=== PATIENT | female | born 1945 | race Asian ===

== ENCOUNTER 2016-07-12 09:28 | Outpatient (CLI) | payer MEDICARE, OTHER | END 2016-07-12 09:29 | disposition home or self-care (01) | DX: G47.33 Obstructive sleep apnea (adult) (pediatric) (principal) | CPT/HCPCS: 99214; G0463 ==

== ENCOUNTER 2016-08-09 09:45 | Outpatient (CLI) | payer MEDICARE, OTHER | END 2016-08-09 09:46 | disposition home or self-care (01) | DX: G47.33 Obstructive sleep apnea (adult) (pediatric) (principal) | CPT/HCPCS: 99214; G0463 ==

== ENCOUNTER 2016-08-16 09:56 | Outpatient (CLI) | payer MEDICARE, OTHER | END 2016-08-16 09:57 | disposition home or self-care (01) | DX: R06.00 Dyspnea, unspecified (principal); R00.0 Tachycardia, unspecified | CPT/HCPCS: 78452; 93017; A9500 ==

== ENCOUNTER 2016-09-12 08:00 | Outpatient (CLI) | payer MEDICARE, OTHER | END 2016-09-12 23:59 | DX: N19 Unspecified kidney failure (principal); Z79.899 Other long term (current) drug therapy; I10 Essential (primary) hypertension; R06.09 Other forms of dyspnea ==

== ENCOUNTER 2016-11-08 09:40 | Outpatient (CLI) | payer MEDICARE, OTHER | END 2016-11-08 09:41 | disposition home or self-care (01) | DX: G47.33 Obstructive sleep apnea (adult) (pediatric) (principal) | CPT/HCPCS: 99214; G0463 ==

== ENCOUNTER 2017-01-25 10:25 | Outpatient (CLI) | payer MEDICARE, OTHER ==
--- NOTE | 2017-01-25 10:58 | XRAY Report ---
TWO-VIEW CHEST: 01/25/2017 CLINICAL INDICATION: Dyspnea. FINDINGS: Frontal and lateral views of the chest demonstrate a mildly enlarged cardiac silhouette. There is central pulmonary vascular congestion. No focal consolidation, effusion, or pneumothorax is present. IMPRESSION: PULMONARY VASCULAR CONGESTION, SUGGESTIVE OF MILD CONGESTIVE FAILURE. JOB #: [id number] EXT JOB #:[id number]
[2017-01-25 11:36] LABS: BASOPHILS % (AUTO) 0.5 %; EOSINOPHILS # (AUTO) 0.1 10^3/uL (0.0-0.7); EOSINOPHILS % (AUTO) 2.2 %; HGB - HEMOGLOBIN 11.1 g/dL (12.0-16.0); LYMPHOCYTES # (AUTO) 1.8 10^3/uL (1.5-3.5); LYMPHOCYTES % (AUTO) 30.2 %; MEAN CORPUSCULAR HEMOGLOBIN 21.5 pg (27.0-31.0); MEAN CORPUSCULAR HGB CONC 31.8 g/dL (32.0-36.0); MEAN CORPUSCULAR VOLUME 67.6 fL (81.0-99.0); MEAN PLATELET VOLUME 8.1 fL (7.9-10.8); MONOCYTES # (AUTO) 0.4 10^3/uL (0.0-1.0); MONOCYTES % (AUTO) 6.8 %; NEUTROPHILS # (AUTO) 3.7 10^3/uL (1.5-6.6); NEUTROPHILS % (AUTO) 60.3 %; RED BLOOD COUNT 5.19 10^6/uL (4.20-5.40); RED CELL DISTRIBUTION WIDTH 15.7 % (12.0-15.0); UNCORRECTED WHITE BLOOD COUNT 6.1 x10^3/uL; WHITE BLOOD COUNT 6.1 x10^3/uL (4.8-10.8)
[2017-01-25 11:55] LABS: ALBUMIN/GLOBULIN RATIO 1.1 (1.0-2.2); BILIRUBIN,TOTAL 0.5 mg/dL (0.2-1.0); CREATININE 1.4 mg/dL (0.4-1.0); POTASSIUM 4.4 mmol/L (3.5-5.0); TOTAL PROTEIN 6.4 g/dL (6.7-8.2)
== END 2017-01-25 10:26 | disposition home or self-care (01) ==
LOC: DI 10:25
PROVIDERS: ATTEND Internal Medicine
DX: R09.89 Other specified symptoms and signs involving the circulatory and respiratory systems (principal); R06.09 Other forms of dyspnea; R60.9 Edema, unspecified
CPT/HCPCS: 36415; 71020; 80053; 83880; 84443; 85025

== ENCOUNTER 2017-03-23 10:46 | Outpatient (CLI) | payer MEDICARE, OTHER ==
[2017-03-23 11:22] LABS: BASOPHILS % (AUTO) 0.7 %; EOSINOPHILS # (AUTO) 0.2 10^3/uL (0.0-0.7); EOSINOPHILS % (AUTO) 2.6 %; HCT - HEMATOCRIT 37.6 % (37.0-47.0); LYMPHOCYTES # (AUTO) 2.6 10^3/uL (1.5-3.5); LYMPHOCYTES % (AUTO) 38.5 %; MEAN CORPUSCULAR HEMOGLOBIN 21.3 pg (27.0-31.0); MEAN CORPUSCULAR HGB CONC 31.9 g/dL (32.0-36.0); MEAN CORPUSCULAR VOLUME 66.7 fL (81.0-99.0); MEAN PLATELET VOLUME 8.2 fL (7.9-10.8); MONOCYTES # (AUTO) 0.4 10^3/uL (0.0-1.0); MONOCYTES % (AUTO) 5.8 %; NEUTROPHILS # (AUTO) 3.6 10^3/uL (1.5-6.6); NEUTROPHILS % (AUTO) 52.4 %; NUCLEATED RED BLOOD CELLS AUTO 0.1 /100WBC; RED BLOOD COUNT 5.63 10^6/uL (4.20-5.40); UNCORRECTED WHITE BLOOD COUNT 6.9 x10^3/uL; WHITE BLOOD COUNT 6.9 x10^3/uL (4.8-10.8)
[2017-03-23 11:37] LABS: BUN - BLOOD UREA NITROGEN 27 mg/dL (6-20); CALCIUM 9.4 mg/dL (8.5-10.3); CARBON DIOXIDE - CO2 25 mmol/L (21-32); CHLORIDE 106 mmol/L (101-111); CHOL/HDL RATIO 3.3 (<4.4); CHOLESTEROL 205 mg/dL; CREATININE 1.3 mg/dL (0.4-1.0); GFR - MDRD 40 (>89); GLUCOSE 117 mg/dL (70-100); HDL CHOLESTEROL 63 mg/dL; LDL/HDL RATIO 1.7 (<4.4); MAGNESIUM 1.8 mg/dL (1.7-2.8); POTASSIUM 3.8 mmol/L (3.5-5.0); SODIUM 142 mmol/L (135-145); TRIGLYCERIDES 177 mg/dL; URIC ACID 8.3 mg/dL (2.6-7.2); VLDL CHOLESTEROL 35 mg/dL
[2017-03-23 11:40] LABS: PLATELET ESTIMATE, MANUAL NORMAL (130-450,000) (NORMAL); PLATELET MORPHOLOGY NORMAL APPEARANCE (NORMAL)
[2017-03-23 11:41] LABS: WBC MORPHOLOGY (MULTIPLE) NORMAL APPEARANCE (NORMAL)
[2017-03-23 11:52] LABS: BILIRUBIN,URINE NEGATIVE (NEGATIVE); PH,URINE 5.5 PH (5.0-7.5)
[2017-03-23 11:53] LABS: UA CHARGE (STRIP ONLY) YES; UR CULTURE IF IND NOT INDICATED
[2017-03-23 12:27] LABS: HEMOGLOBIN A1C 0.5 g/dL
== END 2017-03-23 10:47 | disposition home or self-care (01) ==
LOC: LAB 10:46
PROVIDERS: ATTEND Internal Medicine
DX: I12.9 Hypertensive chronic kidney disease with stage 1 through stage 4 chronic kidney disease, or unspecified chronic kidney disease (principal); Z79.899 Other long term (current) drug therapy; H35.81 Retinal edema; I48.91 Unspecified atrial fibrillation; N18.9 Chronic kidney disease, unspecified; G47.33 Obstructive sleep apnea (adult) (pediatric); I63.9 Cerebral infarction, unspecified; E78.5 Hyperlipidemia, unspecified; M10.9 Gout, unspecified; D50.9 Iron deficiency anemia, unspecified; R39.15 Urgency of urination
CPT/HCPCS: 36415; 80048; 80061; 81001; 81003; 82550; 83036; 83735; 84550; 85025; 87086

== ENCOUNTER 2017-05-30 14:10 | Outpatient (CLI) | payer MEDICARE, OTHER | END 2017-05-30 14:11 | disposition home or self-care (01) | LOC: SC 14:10 | PROVIDERS: ATTEND Nurse Practitioner Family | DX: G47.33 Obstructive sleep apnea (adult) (pediatric) (principal) | CPT/HCPCS: 99214; G0463; 99212 ==

== ENCOUNTER 2017-08-29 14:35 | Outpatient (CLI) | payer MEDICARE, OTHER ==
[2017-08-29 15:26] LABS: CALCIUM 8.8 mg/dL (8.5-10.3); CREATININE 1.2 mg/dL (0.4-1.0)
[2017-08-29 15:44] LABS: HEMOGLOBIN A1C 0.48 g/dL; HEMOGLOBIN A1C % 5.5 % (4.6-6.2)
== END 2017-08-29 14:36 | disposition home or self-care (01) ==
LOC: LAB 14:35
PROVIDERS: ATTEND Internal Medicine
DX: R60.9 Edema, unspecified (principal); R73.01 Impaired fasting glucose; N18.9 Chronic kidney disease, unspecified; I12.9 Hypertensive chronic kidney disease with stage 1 through stage 4 chronic kidney disease, or unspecified chronic kidney disease; Z79.899 Other long term (current) drug therapy
CPT/HCPCS: 36415; 80048; 83036

== ENCOUNTER 2017-08-31 14:48 | Outpatient (CLI) | payer MEDICARE, OTHER ==
--- NOTE | 2017-08-31 23:53 | Ultrasound Report ---
EXAM: LEFT LOWER EXTREMITY VENOUS ULTRASOUND EXAM DATE: 08/31/2017 04:33 PM. CLINICAL HISTORY: EDEMA. COMPARISON: None. TECHNIQUE: Real-time sonographic vascular imaging was performed by the engineering director through the lower extremity utilizing both color-flow and Doppler spectral analysis. Multiple lead generation representative static yoshi ges were saved for review. FINDINGS: Common Femoral Vein (CFV): Normal. CFV-GSV Junction: Normal. Profunda Femoral Vein (PFV): Normal. Femoral Vein (FV) Prox: Normal. Femoral Vein (FV) Mid: Normal. Femoral Vein (FV) Dist: Normal. Popliteal Vein: Normal. Posterior Tibial Veins: Normal. Peroneal Veins: Normal. Contralateral Side CFV: Normal. Other: None. IMPRESSION: No evidence for deep venous thrombosis. [facility] Referring Provider Line: [phone] SITE ID: [id number]
== END 2017-08-31 14:49 | disposition home or self-care (01) ==
LOC: DI 14:48
PROVIDERS: ATTEND Internal Medicine
DX: R60.9 Edema, unspecified (principal)

== ENCOUNTER 2017-12-13 13:38 | Outpatient (CLI) | payer MEDICARE, OTHER | END 2017-12-13 13:39 | disposition home or self-care (01) | LOC: SC 13:38 | PROVIDERS: ATTEND Nurse Practitioner Family | DX: G47.33 Obstructive sleep apnea (adult) (pediatric) (principal) | CPT/HCPCS: 99214; G0463; 99212 ==

== ENCOUNTER 2018-03-28 10:55 | Outpatient (CLI) | payer MEDICARE, OTHER ==
[2018-03-28 12:05] LABS: BASOPHILS % (AUTO) 0.2 %; EOSINOPHILS # (AUTO) 0.2 10^3/uL (0.0-0.7); EOSINOPHILS % (AUTO) 2.5 %; HGB - HEMOGLOBIN 11.8 g/dL (12.0-16.0); LYMPHOCYTES # (AUTO) 2.2 10^3/uL (1.5-3.5); LYMPHOCYTES % (AUTO) 33.5 %; MEAN CORPUSCULAR HEMOGLOBIN 22.2 pg (27.0-31.0); MEAN CORPUSCULAR HGB CONC 32.3 g/dL (32.0-36.0); MEAN CORPUSCULAR VOLUME 68.6 fL (81.0-99.0); MEAN PLATELET VOLUME 8.4 fL (7.9-10.8); MONOCYTES # (AUTO) 0.4 10^3/uL (0.0-1.0); MONOCYTES % (AUTO) 6.9 %; NEUTROPHILS # (AUTO) 3.7 10^3/uL (1.5-6.6); NEUTROPHILS % (AUTO) 56.9 %; PLT - PLATELET COUNT 181 10^3/uL (130-450); RED BLOOD COUNT 5.31 10^6/uL (4.20-5.40); RED CELL DISTRIBUTION WIDTH 16.6 % (12.0-15.0); WHITE BLOOD COUNT 6.4 x10^3/uL (4.8-10.8)
[2018-03-28 12:51] LABS: ALBUMIN 3.7 g/dL (3.2-5.5); ALBUMIN/GLOBULIN RATIO 1.1 (1.0-2.2); ALKALINE PHOSPHATASE 62 IU/L (42-121); ALT ALANINE AMINOTRANSFERASE 24 IU/L (10-60); AST ASPARTATE AMINOTRANSFERASE 27 IU/L (10-42); BILIRUBIN,TOTAL 0.9 mg/dL (0.2-1.0); BUN - BLOOD UREA NITROGEN 24 mg/dL (6-20); CALCIUM 8.9 mg/dL (8.5-10.3); CARBON DIOXIDE - CO2 24 mmol/L (21-32); CHLORIDE 103 mmol/L (101-111); CHOL/HDL RATIO 3.2 (<4.4); CHOLESTEROL 190 mg/dL; CK- CREATINE KINASE 95 IU/L (22-269); CREATININE 1.3 mg/dL (0.4-1.0); GFR - MDRD 40 (>89); GLUCOSE 115 mg/dL (70-100); HDL CHOLESTEROL 60 mg/dL; LDL CHOLESTEROL,CALCULATED 97 mg/dL; LDL/HDL RATIO 1.6 (<4.4); SODIUM 136 mmol/L (135-145); TOTAL PROTEIN 7.2 g/dL (6.7-8.2); URIC ACID 9.4 mg/dL (2.6-7.2); VLDL CHOLESTEROL 33 mg/dL
[2018-03-28 13:23] LABS: PLATELET ESTIMATE, MANUAL NORMAL (130-450,000) (NORMAL)
[2018-03-28 13:27] LABS: HB2 TOTAL 12.6 g/dL; HEMOGLOBIN A1C 0.49 g/dL; HEMOGLOBIN A1C % 5.7 % (4.6-6.2)
== END 2018-03-28 10:56 | disposition home or self-care (01) ==
LOC: LAB 10:55
PROVIDERS: ATTEND Internal Medicine
DX: N18.9 Chronic kidney disease, unspecified (principal); E78.5 Hyperlipidemia, unspecified; Z79.899 Other long term (current) drug therapy; D50.9 Iron deficiency anemia, unspecified; R73.01 Impaired fasting glucose; I48.91 Unspecified atrial fibrillation; M10.9 Gout, unspecified; I10 Essential (primary) hypertension; N39.41 Urge incontinence; H35.81 Retinal edema; Z86.010 Personal history of colon polyps
CPT/HCPCS: 36415; 80053; 80061; 82550; 83036; 83721; 84443; 84550; 85025

== ENCOUNTER 2018-12-26 09:16 | Outpatient (CLI) | payer MEDICARE, OTHER | END 2018-12-26 09:17 | disposition home or self-care (01) | LOC: SC 09:16 | PROVIDERS: ATTEND Nurse Practitioner Family | DX: G47.33 Obstructive sleep apnea (adult) (pediatric) (principal); R03.0 Elevated blood-pressure reading, without diagnosis of hypertension | CPT/HCPCS: 99214; G0463; 99212 ==

== ENCOUNTER 2019-04-08 11:04 | Outpatient (CLI) | payer MEDICARE, OTHER ==
--- NOTE | 2019-04-11 08:51 | Mammography Report ---
Reason: ROUTINE MAMMO Procedure Date: 04/08/2019 Accession Number: [id number] / [id number] Procedure: MGN - Screening Mammo Dig Bilat CPT Code: FULL RESULT: EXAM: Screening Mammo Dig Bilat DATE: 04/08/2019 11:26 AM CLINICAL HISTORY: Screening encounter. History of late childbearing. TECHNIQUE: (B) - Bilateral CC and MLO views were obtained. COMPARISON: 03/30/2018 through 04/22/2015. PARENCHYMAL PATTERN: (A) - The breast(s) demonstrate(s) scattered fibroglandular densities. FINDINGS: There are no suspicious masses, calcifications, or areas of distortion. IMPRESSION: Negative examination. BI-RADS category 1. RECOMMENDATION: (ANNUAL) - Recommend routine annual screening mammography. BI-RADS CATEGORY: (1) - Negative. STANDARD QUALIFYING STATEMENTS: 1. This examination was not reviewed with the aid of Computer-Aided Detection (CAD). 2. A negative or benign imaging report should not preclude biopsy if clinically suspicious findings are present. 3. Dense breasts may obscure an underlying neoplasm. 4. This examination was reviewed without the aid of 3D breast imaging (tomosynthesis).
== END 2019-04-08 11:05 | disposition home or self-care (01) ==
LOC: DI.N 11:04
PROVIDERS: ATTEND Internal Medicine
DX: Z12.31 Encounter for screening mammogram for malignant neoplasm of breast (principal)
CPT/HCPCS: 77067

== ENCOUNTER 2019-04-18 11:06 | Outpatient (CLI) | payer MEDICARE, OTHER ==
[2019-04-18 11:52] LABS: BASOPHILS % (AUTO) 0.6 %; EOSINOPHILS # (AUTO) 0.2 10^3/uL (0.0-0.7); EOSINOPHILS % (AUTO) 3.7 %; HGB - HEMOGLOBIN 11.4 g/dL (12.0-16.0); LYMPHOCYTES % (AUTO) 36.9 %; MEAN CORPUSCULAR HEMOGLOBIN 22.1 pg (27.0-31.0); MEAN CORPUSCULAR HGB CONC 32.9 g/dL (32.0-36.0); MEAN CORPUSCULAR VOLUME 67.1 fL (81.0-99.0); MEAN PLATELET VOLUME 10.7 fL (7.9-10.8); MONOCYTES # (AUTO) 0.4 10^3/uL (0.0-1.0); NEUTROPHILS # (AUTO) 2.8 10^3/uL (1.5-6.6); NEUTROPHILS % (AUTO) 51.6 %; PLT - PLATELET COUNT 218 10^3/uL (130-450); RED BLOOD COUNT 5.16 10^6/uL (4.20-5.40); RED CELL DISTRIBUTION WIDTH 17.8 % (12.0-15.0); WHITE BLOOD COUNT 5.4 x10^3/uL (4.8-10.8)
[2019-04-18 12:04] LABS: HEMOGLOBIN A1C 0.49 g/dL; HEMOGLOBIN A1C % 5.9 % (4.6-6.2)
[2019-04-18 12:11] LABS: ALBUMIN 3.4 g/dL (3.2-5.5); ALBUMIN/GLOBULIN RATIO 0.9 (1.0-2.2); ALKALINE PHOSPHATASE 63 IU/L (42-121); ALT ALANINE AMINOTRANSFERASE 19 IU/L (10-60); AST ASPARTATE AMINOTRANSFERASE 23 IU/L (10-42); BILIRUBIN,TOTAL 0.8 mg/dL (0.2-1.0); BUN - BLOOD UREA NITROGEN 16 mg/dL (6-20); CARBON DIOXIDE - CO2 23 mmol/L (21-32); CHLORIDE 108 mmol/L (101-111); CHOL/HDL RATIO 3.3 (<4.4); CHOLESTEROL 168 mg/dL; CK- CREATINE KINASE 81 IU/L (22-269); CREATININE 1.3 mg/dL (0.4-1.0); GFR - MDRD 40 (>89); GLUCOSE 116 mg/dL (70-100); HDL CHOLESTEROL 51 mg/dL; LDL CHOLESTEROL,CALCULATED 90 mg/dL; LDL/HDL RATIO 1.8 (<4.4); SODIUM 139 mmol/L (135-145); URIC ACID 7.2 mg/dL (2.6-7.2); VLDL CHOLESTEROL 27 mg/dL
[2019-04-18 12:18] LABS: THYROID STIMULATING HORMONE 1.99 uIU/mL (0.34-5.60)
== END 2019-04-18 11:07 | disposition home or self-care (01) ==
LOC: LAB 11:06
PROVIDERS: ATTEND Internal Medicine
DX: I34.0 Nonrheumatic mitral (valve) insufficiency (principal); R60.9 Edema, unspecified; Z79.899 Other long term (current) drug therapy; Z13.6 Encounter for screening for cardiovascular disorders; R20.2 Paresthesia of skin; R00.2 Palpitations; G47.33 Obstructive sleep apnea (adult) (pediatric); I48.91 Unspecified atrial fibrillation; E78.5 Hyperlipidemia, unspecified; M10.9 Gout, unspecified; R73.01 Impaired fasting glucose; D64.9 Anemia, unspecified
CPT/HCPCS: 36415; 80053; 80061; 82550; 82607; 83036; 83721; 83880; 84443; 84550; 85025

== ENCOUNTER 2019-06-11 17:20 | Outpatient (CLI) | payer MEDICARE, OTHER ==
--- NOTE | 2019-06-11 18:41 | CT Report ---
Reason: L ARM WEAKNESS, L SHOULDER PAIN Procedure Date: 06/11/2019 Accession Number: [id number] / [id number] Procedure: CT - HEAD WO CPT Code: Final Report FULL RESULT: EXAM: CT HEAD EXAM DATE: 06/11/2019 05:55 PM. CLINICAL HISTORY: L ARM WEAKNESS, L SHOULDER PAIN. COMPARISON: None TECHNIQUE: Multiaxial CT images were obtained from the foramen magnum to the vertex. Reformats: Sagittal and coronal. IV contrast: None. In accordance with CT protocol optimization, one or more of the following dose reduction techniques were utilized for this exam: automated exposure control, adjustment of mA and/or KV based on patient size, or use of iterative reconstructive technique. FINDINGS: Parenchyma: Encephalomalacia is present in the right frontoparietal lobe. No intraparenchymal hemorrhage. No evidence of mass, midline shift or CT findings of acute territorial infarction. [place]-white differentiation is distinct. Extraaxial Spaces: No subdural or epidural collections identified. Ventricles: No hydrocephalus Sinuses: Imaged paranasal sinuses, orbits, and mastoids show no significant abnormality. Bones: No evidence of acute fracture or calvarial defect. Other: None. IMPRESSION: No acute intracranial abnormalities. Encephalomalacia in the right frontoparietal lobe. If there is suspicion for acute on chronic infarct, MRI could be performed. [facility] The call report notification system was initiated by Dr. David Thacker at 06:37 PM on 06/11/2019. The above call report findings were discussed with Dr. Reyes by Dr. David Thacker at 06:40 PM on 06/11/2019.
--- NOTE | 2019-06-12 09:22 | XRAY Report ---
Reason: L ARM WEAKNESS, L SHOULDER PAIN Procedure Date: 06/11/2019 Accession Number: [id number] / [id number] Procedure: XR - Shoulder 3 View LT CPT Code: Final Report FULL RESULT: EXAM: LEFT SHOULDER RADIOGRAPHY EXAM DATE: 06/11/2019 05:46 PM. CLINICAL HISTORY: L ARM WEAKNESS, L SHOULDER PAIN. COMPARISON: None. TECHNIQUE: 4 views. FINDINGS: Bones: Surgical screw greater tuberosity. No acute fracture or bone lesion. Bony degenerative changes. Joints: The acromioclavicular joint is anatomically aligned with degenerative change. The humeral head is subluxed inferiorly and anteriorly with respect to the glenoid with joint space widening suggesting ligamentous laxity or joint effusion. Soft tissues: Question tiny pulmonary nodules in the lung. Suggest correlation with chest x-ray. No soft tissue calcification. IMPRESSION: 1. Degenerative and postsurgical change left shoulder including humeral head screw, humeral head anterior inferior subluxation, and glenohumeral joint space widening suggesting ligamentous laxity or joint effusion. Suggest comparison with any prior x-rays to determine the chronicity of the findings. If no old films are available then CT might be useful. 2. Question tiny pulmonary nodules. Suggest PA and lateral chest x-ray. [facility]
== END 2019-06-11 17:21 | disposition home or self-care (01) ==
LOC: DI 17:20
PROVIDERS: ATTEND Internal Medicine
DX: G93.89 Other specified disorders of brain (principal); M19.012 Primary osteoarthritis, left shoulder; S43.032A Inferior subluxation of left humerus, initial encounter
CPT/HCPCS: 70450

== ENCOUNTER 2019-06-12 13:36 | Emergency (ER) | payer MEDICARE, OTHER ==
[2019-06-12 13:42] VITALS: BP 180/101
[2019-06-12] MEDS ORDERED: oxyCODONE 5 MG TABLET PO STA (13:43)
--- NOTE | 2019-06-12 13:53 | ED Physician Documentation ---
History of Present Illness - Stated complaint Stated Complaint: HIGH BP - Chief complaint Chief Complaint: General - History obtained from History obtained from: Patient, Family - History of Present Illness Timing: Chronic Pain level max: 6 Pain level now: 5 - Additonal information Additional information: 73-year-old female presents to the emergency department after having a colonoscopy today. She did not take her blood pressure medications this morning. Her blood pressure was noted to be high and so they sent her here for evaluation. She is asymptomatic. No chest pain. No shortness of breath. No headache. No visual changes. She states that her normal blood pressure is between 160 and 180. She has an appointment with her doctor tomorrow at 10 AM. She states she has been having left shoulder pain since yesterday. Her doctor ordered x-rays of this yesterday. She is following up with her doctor in the morning for results of this. No injury. No fever. Review of Systems Ten Systems: 10 systems reviewed and negative Constitutional: denies: Fever, Chills Nose: denies: Rhinorrhea / runny nose, Congestion Throat: denies: Sore throat Cardiac: denies: Chest pain / pressure, Palpitations Respiratory: denies: Dyspnea, Cough GI: denies: Abdominal Pain, Nausea, Vomiting, Diarrhea Skin: denies: Rash Musculoskeletal: denies: Neck pain, Back pain Neurologic: denies: Confused, Headache, LOC PD PAST MEDICAL HISTORY - Past Medical History Past Medical History: Yes Cardiovascular: Hypertension, High cholesterol, Arrhythmia Respiratory: None, Sleep apnea, CPAP use Neuro: Other Endocrine/Autoimmune: None GI: Colon polyps : Incontinence HEENT: None Musculoskeletal: Osteoarthritis, Gout - Past Surgical History Past Surgical History: Yes General: Colonoscopy Ortho: Other /BILLING AUDITOR: section HEENT: Cataracts, Other - Present Medications Home Medications: Ambulatory Orders Medication Instructions Recorded Confirmed Allopurinol [Zyloprim] 100 mg PO DAILY 05/26/16 06/11/19 Warfarin Sodium [Coumadin] 2 mg PO DAILY 05/26/16 06/11/19 Doxazosin Mesylate 1 tab ORAL DAILY PM 12/19/18 06/12/19 Losartan Potassium 1 tab ORAL DAILY 12/19/18 06/12/19 Metoprolol Tartrate 25 tab ORAL BID 12/19/18 06/12/19 Simvastatin 1 tab ORAL DAILY PM 12/19/18 06/11/19 Furosemide 20 mg PO DAILY 06/11/19 06/11/19 Enoxaparin [Lovenox] 1 BID 06/12/19 - Allergies Allergies/Adverse Reactions: Allergies Allergy/AdvReac Type Severity Reaction Status Date / Time Penicillins Allergy Rash Verified 06/12/19 13:40 amlodipine AdvReac Unknown Unknown Verified 06/12/19 13:40 - Social History Does the pt smoke?: No Smoking Status: Never smoker Does the pt drink ETOH?: No Does the pt have substance abuse?: No - POLST Patient has POLST: No PD ED PE NORMAL - Vitals Vital signs reviewed: Yes - General General: Alert and oriented X 3, No acute distress, Well developed/nourished - HEENT HEENT: Moist mucous membranes - Neck Neck: Supple, no meningeal sign - Cardiac Cardiac: RRR, Strong equal pulses - Respiratory Respiratory: No respiratory distress, Clear bilaterally - Abdomen Abdomen: Soft, Non tender, Non distended - Derm Derm: Warm and dry - Extremities Extremities: Other (Tender to palpation over the left shoulder. No warmth. No skin changes. Approximately 60% range of motion. Neurovascular intact) - Neuro Neuro: Alert and oriented X 3 - Psych Psych: Normal mood, Normal affect Results - Vitals Vitals: Vital Signs - 24 hr 06/12/19 13:36 Temperature 97.7 C H Heart Rate 86 Respiratory 15 Rate Blood Pressure 180/101 H O2 Saturation 97 Oxygen O2 Source Non-rebreather mask PD MEDICAL DECISION MAKING - ED course Complexity details: considered differential, d/w patient, d/w family ED course: Patient with asymptomatic chronic hypertension. Her blood pressure is now near her normal blood pressure. She did not take her home medications prior to her colonoscopy this morning. She will take these when she gets home. No emergency medical condition at this time. Her left shoulder pain is being followed up by her doctor who ordered a radiographic imaging yesterday and is seeing her at 10 AM tomorrow. Patient counseled regarding signs and symptoms for which I believe and urgent re-evaluation would be necessary. Patient with good understanding of and agreement to plan and is comfortable going home at this time This document was made in part using voice recognition software. While efforts are made to proofread this document, sound alike and grammatical errors may occur. Departure - Departure Disposition: 01 Home, Self Care Clinical Impression: Hypertension Qualifiers: Hypertension type: unspecified Qualified Code(s): I10 - Essential (primary) hypertension Condition: Good Instructions: ED HTN Established Follow-Up: Sirisha Reyes MD [Primary Care Provider] - Tomorrow Comments: Follow up with Dr. Reyes tomorrow at 10am. Continue your medications at home. Return if you worsen.
== END 2019-06-12 14:17 | disposition home or self-care (01) ==
LOC: ED 13:36
DX: I10 Essential (primary) hypertension (principal); T50.906A Underdosing of unspecified drugs, medicaments and biological substances, initial encounter; Z91.128 Patient's intentional underdosing of medication regimen for other reason; Z98.890 Other specified postprocedural states
CPT/HCPCS: 99282; 99284

== ENCOUNTER 2019-06-29 09:49 | Outpatient (CLI) | payer MEDICARE, OTHER ==
--- NOTE | 2019-06-30 05:06 | XRAY Report ---
Reason: SOLITARY PULMONARY NODULE Procedure Date: 06/29/2019 Accession Number: [id number] / [id number] Procedure: XR - Chest 2 View X-Ray CPT Code: 49273 Final Report FULL RESULT: EXAM: CHEST RADIOGRAPHY EXAM DATE: 06/29/2019 10:06 AM. CLINICAL HISTORY: SOLITARY PULMONARY NODULE. COMPARISON: CHEST 2 VIEW PA/LAT 01/25/2017 10:30 AM. TECHNIQUE: 2 views. FINDINGS: Lungs/Pleura: Unchanged bilateral interstitial opacities. No focal consolidation, pleural effusion, or pneumothorax. Mediastinum: Atherosclerotic plaque calcifications are seen in the aorta. The mediastinal and cardiac silhouettes are within normal limits. Other: Left proximal humeral internal fixation screw, unchanged. IMPRESSION: No focal consolidation. Mild bilateral interstitial opacities, unchanged. [facility]
--- NOTE | 2019-06-30 14:43 | MRI Report ---
Reason: MONOPLEGIA OF UPPER LIMB Procedure Date: 06/29/2019 Accession Number: [id number] / [id number] Procedure: MRI - Shoulder LT W/O CPT Code: Final Report FULL RESULT: EXAM: LEFT SHOULDER MRI WITHOUT CONTRAST EXAM DATE: 06/29/2019 12:54 PM. CLINICAL HISTORY: Monoplegia of upper limb. COMPARISON: CHEST 2 VIEW 06/29/2019 9:55 AM. SHOULDER 3 VIEW LT 06/11/2019 5:33 PM. TECHNIQUE: Multiplanar, multisequence T1-weighted and fluid-sensitive sequences of the shoulder without contrast. Other: Motion artifact. FINDINGS: Acromioclavicular Region: The acromion is type II unipartite. AC joint is narrowed and there is significant marginal arthrosis present. The coracoacromial and coracoclavicular ligaments are intact. No subacromial/subdeltoid bursal fluid. Glenohumeral Region: Superior subluxation of the humeral head with respect to the bony glenoid. Moderate size joint effusion. There may be tiny loose bodies in the inferior joint. Further assessment is limited because of metallic artifact. Plain x-rays show an obliquely oriented screw in the superior aspect of the humerus. Series 901 image 8. Articular cartilage is difficult to assess because of artifact. No large defects. There is some broadening of the glenoid articular surface. Bone Marrow: No fractures are noted. Labrum: No distinct labral tear. Labrum difficult to assess. Musculature/Rotator Cuff: Focal full-thickness tear of the supraspinatus portion of the rotator cuff. The infraspinatus may also be involved. Significant fatty atrophy of the supraspinatus and infraspinatus muscle bundles. Subscapularis and teres minor muscle bundles appear unremarkable. Distal tendons are difficult to assess. Biceps Tendon: Significant tendinopathy at the long head of the biceps tendon in the bicipital groove. Surrounding swelling and edema. No tear. Other: The subcutaneous tissues are unremarkable. IMPRESSION: 1. Metallic artifact from a single screw in the proximal humerus and patient motion are present. Focal full-thickness tear supraspinatus portion of the rotator cuff. Infraspinatus may also be involved. Significant fatty atrophy of both these muscle bundles. 2. Severe biceps tendinitis without tendon tear. 3. Moderate sized joint effusion. There may be small loose bodies inferiorly in the joint. No distinct labral tears. No discrete fractures. [facility]
== END 2019-06-29 09:50 | disposition home or self-care (01) ==
LOC: DI 09:49
PROVIDERS: ATTEND Internal Medicine
DX: R91.8 Other nonspecific abnormal finding of lung field (principal); M75.102 Unspecified rotator cuff tear or rupture of left shoulder, not specified as traumatic; M75.22 Bicipital tendinitis, left shoulder; M25.412 Effusion, left shoulder
CPT/HCPCS: 71046

== ENCOUNTER 2020-01-06 10:47 | Outpatient (CLI) | payer MEDICARE, OTHER ==
[2020-01-06 11:45] VITALS: BP 160/100
--- NOTE | 2020-01-06 11:45 | SLEEP CARE CONSULTATION ---
Information from patient questionnaire entered by So Diaz. I have reviewed and concur with the information entered by So Diaz. This document represents the service I personally performed and the decisions made by me, Isamar Waggoner, RN, MSN, CHANNEL SALES MANAGER. History of Present Illness Service Date and Time: 01/06/2020 1047 Previous diagnosis: Mild, Obstructive Sleep Apnea-Hypopnea Syndrome AHI: 10.2 (in 2016) Reason for follow up: annual (last seen 2019) Equipment type: CPAP Equipment obtained from: [facility] Mask style: Nasal Mask brand: Resmed (N20) Backup mask available: Yes (old mask) Last cushion change: more than 6 months Prior sleep studies: Yes Year and Where: 2015 - [facility] Type of Sleep Study: Polysomnography CPAP Compliance Data - Data Reviewed with Patient Average duration of nightly device use: 8.4 Compliance rate %: 95 (180 days) Current pressure setting (cmH2O): 11 Humidity settin Heated hose settin Average residual AHI: 1.1 Average large leak: 19 min 10 sec Subjective Patient concerns: reports: mask discomfort (mask fosneca from mask headgear pressing against cheeks. She uses cloth barrier but did not help ), dry mouth, nose, throat (rare). denies: aerophagia, air blowing in eyes, mask leak noise, condensation in mask/hose, nasal congestion, epistaxis Observed to snore while using device: No Current pressure setting perceived as: comfortable On therapy, patient: reports: sleeping better, awakening more refreshed, being more awake and alert during the day, more rested overall. denies: drowsiness while driving Initial [place] Sleepiness Scale score: 10 (in 2016) Current [place] Sleepiness Scale score: 3 Allergies and Home Medications Known drug allergies: Yes (see list) Home medication list reviewed: No (added Doxazosin 4mg for blood pressure) Review of Systems Review of systems same as previous: Yes Physical Exam Blood Pressure: 160/100 (148/100 large cuff ) Cuff size: long Heart Rate: 61 O2 Saturation: 98 Height: 5 ft Weight: 221 lb 12.8 oz Body Mass Index: 43.3 BMI Classification: Morbidly Obese Impression and Plan 1. Obstructive Sleep Apnea-Hypopnea Syndrome, mild, with good treatment compliance and good apnea control. On CPAP therapy, the patient has better sleep quality and is more rested overall. For her mask concerns, I will order a mask refitting. I also will update her supplies as she has not obtained for several months which will reduce mask leaks. Patient has gained about 5 pounds with children visiting. Currently patients BMI is 41.2 obesity class . She has been to a border patrol agent but having problems following diet. Thus I advised her to go back and discuss another referral back to the border patrol agent as Obesity increases the risk of apnea, CPAP pressure requirements and overall health risks especially hypertension, cardiovascular and diabetes. The patient would like to lose 20 to 40 pounds. The patient's CPAP pressure was changed to 9-11 cmH2O to accommodate future weight loss. Symptoms to report for additional pressure adjustment discussed. Patient's apnea severity and rationale for treatment to reduce apnea, improve sleep quality and reduce cardiovascular and cerebrovascular events was reviewed. I also reviewed the benefit of consistent device use of CPAP for hypertension, arrhythmia. 2. Elevated blood pressure, taken twice with different sizes of blood pressure cuffs. She states she will often have elevated blood pressure when goes to doctor office similar to today as she reports feeling nervous. She monitors her blood pressure twice a day at home and range is usually 140's over 80's. Thus she is advised to retake her blood pressure once home and contact her PCP if remains elevated with rationale and health risks of unmanaged blood pressure. * * Changeauto CPAP pressure to 9-11 cmH2O * mask refitting * Notify me if snoring with mask or feeling that the pressure is too much or too little * Attempt to lose weight * Follow up with PCP if blood pressure remains elevated * Call this office if any problems using CPAP * Return for follow up in 1 year , or sooner if concerns arise Visit Type: In Office Time Spent with Patient (minutes): 35 Provider Statement: I spent 100% of the Face to Face Visit with the patient with greater than 50% spent counseling the patient and coordination of care.
== END 2020-01-06 10:48 | disposition home or self-care (01) ==
LOC: SC 10:47
PROVIDERS: ATTEND Nurse Practitioner Family
DX: G47.33 Obstructive sleep apnea (adult) (pediatric) (principal); R03.0 Elevated blood-pressure reading, without diagnosis of hypertension; E66.01 Morbid (severe) obesity due to excess calories; Z68.41 Body mass index [BMI] 40.0-44.9, adult
CPT/HCPCS: 99214; G0463; 99212

== ENCOUNTER 2020-05-04 11:11 | Outpatient (CLI) | payer MEDICARE, OTHER ==
--- NOTE | 2020-05-05 13:59 | Mammography Report ---
BILATERAL DIGITAL SCREENING MAMMOGRAM 3D/2D: 05/04/2020 CLINICAL: Routine screening. Comparison is made to exams dated: 04/08/2019 mammogram - [facility], 03/30/2018 ma mmogram, 03/27/2017 mammogram, 04/21/2016 mammogram, and 04/22/2015 mammogram - [facility]. The tissue of both breasts is predominantly fatty. There are benign calcifications in both breasts. No significant masses, calcifications, or other findings are seen in either breast. There has been no significant interval change. IMPRESSION: BENIGN There is no mammographic evidence of malignancy. A 1 year screening mammogram is recommended. This exam was interpreted at Station ID: [id number]. NOTE: For mammograms, a report in lay terms will be sent to the patient. Approximately 15% of breast malignancies will not be visualized mammographically. In the management of a palpable breast mass, a negative mammogram must not discourage biopsy of a clinically suspicious lesion. Electronically Signed By: Bairon Duff acr/penrad:05/04/2020 13:11:17 ACR BI-RADS Category 2: Benign Finding(s) 3342F PARENCHYMAL PATTERN: (F) - The breast(s) demonstrate(s) diffuse fatty replacement. BI-RADS CATEGORY: (2) - 2 RECOMMENDATION: (ANNUAL) - Recommend routine annual screening mammography. [id number] 1 year screening LATERALITY: (B)
== END 2020-05-04 11:12 | disposition home or self-care (01) ==
LOC: DI.N 11:11
PROVIDERS: ATTEND Internal Medicine
DX: Z12.31 Encounter for screening mammogram for malignant neoplasm of breast (principal)
CPT/HCPCS: 77063; 77067

== ENCOUNTER 2020-08-11 08:56 | Outpatient (CLI) | payer MEDICARE, OTHER | END 2020-08-11 08:57 | disposition home or self-care (01) | LOC: DI 08:56 | PROVIDERS: ATTEND Internal Medicine | DX: I11.0 Hypertensive heart disease with heart failure (principal); I50.20 Unspecified systolic (congestive) heart failure; R79.89 Other specified abnormal findings of blood chemistry; R06.00 Dyspnea, unspecified | CPT/HCPCS: 93306 ==

== ENCOUNTER 2020-09-24 13:22 | Outpatient (CLI) | payer MEDICARE, OTHER ==
--- NOTE | 2020-09-24 14:05 | SLEEP CARE CONSULTATION ---
Information from patient questionnaire entered by Nikki Dumont. I have reviewed and concur with the information entered by Nikki Dumont. This document represents the service I personally performed and the decisions made by , Romy Hammond ARNP. History of Present Illness Service Date and Time: 09/24/2020 1322 Previous diagnosis: Mild, Obstructive Sleep Apnea-Hypopnea Syndrome AHI: 10.2 (in 2016) Reason for follow up: other (9-month followup - transfer DME) Equipment type: CPAP Equipment obtained from: [facility] (no longer do supplies) Mask style: Nasal (over the nose ([place])) Mask brand: Respironics Backup mask available: Yes (old mask) Last cushion change: 2 weeks Prior sleep studies: Yes Year and Where: 2016 - [facility] Sleep HPI additional information: EUNICE ARIAS was diagnosed to have mild, AHI 10.2, obstructive sleep apnea- hypopnea syndrome and returned today for CPAP therapy 9 month follow-up. Patient needs new DME. CPAP Compliance Data - Data Reviewed with Patient Average duration of nightly device use: 8 h 27 min Compliance rate %: 96.1 Current pressure setting (cmH2O): 9-11 Humidity settin Heated hose settin Average residual AHI: 1.8 Average large leak: 23 min 2 sec Subjective Missed days of use due to: reports: other (power outages) Patient concerns: reports: mask discomfort (fonseca on face, has barrier cloths), air blowing in eyes. denies: aerophagia, mask leak noise, condensation in mask/hose, nasal congestion, dry mouth, nose, throat, epistaxis, other Observed to snore while using device: No Current pressure setting perceived as: comfortable On therapy, patient: reports: sleeping better, awakening more refreshed, being more awake and alert during the day, more rested overall. denies: drowsiness while driving Initial [place] Sleepiness Scale score: 10 (in 2016) Current [place] Sleepiness Scale score: 3 Allergies and Home Medications Drug allergies reviewed: Yes (penicillins, amlodipine) Home medication list reviewed: Yes Allergy and home medication list: Furosemide Losartan potassium chloride Metoprolol allopurinol tolrerodine ER simvastatin doxazosin warfarin Physical Exam Heart Rate: 79 O2 Saturation: 98 Height: 5 ft Weight: 216 lb Weight change since last visit: 5 loss Body Mass Index: 42.2 BMI Classification: Morbidly Obese Impression and Plan 1. Obstructive Sleep Apnea-Hypopnea Syndrome, mild, with good treatment compliance and good apnea control. On CPAP therapy, the patient has better sleep quality and is more rested overall. She gets some air leaking into eyes but adjusting her mask resolves this issue. She is satisfied with current treatment. Patient needs a new DME. Patient was informed that another DME can be used. I will have my emergency medical services coordinator inform of DME options. A DWO prescription will then be made. Patient advised to contact this office if further supply problems. Patient's apnea severity and rationale for treatment to reduce apnea, improve sleep quality and reduce cardiovascular and cerebrovascular events was reviewed. I also reviewed the benefit of consistent device use of CPAP for hypertension, and arrhythmia. * Continue autoCPAP pressure at 9-11 cmH2O * Transfer DME * Notify me if snoring with mask or feeling that the pressure is too much or too little * Continue to try to lose weight * Call this office if any problems using CPAP * Return for follow up in 1 year, or sooner if concerns arise Counseling Topics: Spare mask, Weight loss health impact Visit Type: In Office Time Spent with Patient (minutes): 16 Provider Statement: I spent 100% of the Face to Face Visit with the patient with greater than 50% spent counseling the patient and coordination of care.
== END 2020-09-24 13:23 | disposition home or self-care (01) ==
LOC: SC 13:22
PROVIDERS: ATTEND Nurse Practitioner Family
DX: G47.33 Obstructive sleep apnea (adult) (pediatric) (principal); E66.01 Morbid (severe) obesity due to excess calories; Z68.41 Body mass index [BMI] 40.0-44.9, adult
CPT/HCPCS: 99212; G0463

== ENCOUNTER 2020-12-10 17:09 | Outpatient (CLI) | payer MEDICARE, OTHER ==
[2020-12-10 17:46] LABS: BASOPHILS % (AUTO) 0.7 %; EOSINOPHILS # (AUTO) 0.1 10^3/uL (0.0-0.7); EOSINOPHILS % (AUTO) 2.3 %; HCT - HEMATOCRIT 31.1 % (37.0-47.0); HGB - HEMOGLOBIN 10.3 g/dL (12.0-16.0); LYMPHOCYTES # (AUTO) 1.6 10^3/uL (1.5-3.5); LYMPHOCYTES % (AUTO) 28.5 %; MEAN CORPUSCULAR HEMOGLOBIN 22.7 pg (27.0-31.0); MEAN CORPUSCULAR HGB CONC 33.1 g/dL (32.0-36.0); MEAN CORPUSCULAR VOLUME 68.7 fL (81.0-99.0); MEAN PLATELET VOLUME 9.9 fL (7.9-10.8); MONOCYTES # (AUTO) 0.4 10^3/uL (0.0-1.0); MONOCYTES % (AUTO) 6.5 %; NEUTROPHILS # (AUTO) 3.5 10^3/uL (1.5-6.6); NEUTROPHILS % (AUTO) 61.7 %; PLT - PLATELET COUNT 157 10^3/uL (130-450); RED BLOOD COUNT 4.53 10^6/uL (4.20-5.40); RED CELL DISTRIBUTION WIDTH 18.3 % (12.0-15.0); WHITE BLOOD COUNT 5.7 x10^3/uL (4.8-10.8)
[2020-12-10 17:57] LABS: SLIDE REVIEW? Indicated
[2020-12-10 17:58] LABS: ALBUMIN 3.4 g/dL (3.2-5.5); ALBUMIN/GLOBULIN RATIO 1.2 (1.0-2.2); BILIRUBIN,TOTAL 0.9 mg/dL (0.2-1.0); CALCIUM 8.8 mg/dL (8.5-10.3); CREATININE 1.5 mg/dL (0.4-1.0); POTASSIUM 4.4 mmol/L (3.5-5.0); TOTAL PROTEIN 6.3 g/dL (6.7-8.2)
[2020-12-10 18:17] LABS: PLATELET ESTIMATE, MANUAL NORMAL (130-450,000) (NORMAL); PLATELET MORPHOLOGY NORMAL APPEARANCE (NORMAL); RBC MORPHOLOGY (MULTIPLE) 1+ MICROCYTOSIS (NORMAL); WBC MORPHOLOGY (MULTIPLE) NORMAL APPEARANCE (NORMAL)
== END 2020-12-10 17:10 | disposition home or self-care (01) ==
LOC: LAB 17:09
PROVIDERS: ATTEND Internal Medicine
DX: I48.91 Unspecified atrial fibrillation (principal); N18.9 Chronic kidney disease, unspecified; R00.0 Tachycardia, unspecified; R00.2 Palpitations; R06.09 Other forms of dyspnea; R25.2 Cramp and spasm; R60.9 Edema, unspecified
CPT/HCPCS: 36415; 80053; 83880; 84443; 85025

== ENCOUNTER 2021-07-29 13:00 | Outpatient (CLI) | payer MEDICARE, OTHER ==
--- NOTE | 2021-07-30 08:10 | Mammography Report ---
BILATERAL DIGITAL SCREENING MAMMOGRAM 3D/2D: 07/29/2021 CLINICAL: Routine screening. Comparison is made to exams dated: 05/04/2020 mammogram, 04/08/2019 mammogram - [facility], 03/30/2018 mammogram, 03/27/2017 mammogram, 04/21/2016 mammogram, and 04/22/2015 mammogram - [facility]. There are scattered fibroglandular elements in both breasts. There are benign calcifications in both breasts. No significant masses, calcifications, or other findings are seen in either breast. There has been no significant interval change. IMPRESSION: BENIGN There is no mammographic evidence of malignancy. A 1 year screening mammogram is recommended. This exam was interpreted at Station ID: [id number]. NOTE: For mammograms, a report in lay terms will be sent to the patient. Approximately 15% of breast malignancies will not be visualized mammographically. In the management of a palpable breast mass, a negative mammogram must not discourage biopsy of a clinically suspicious lesion. Electronically Signed By: Jed arias/[email or web address]:07/29/2021 16:16:31 ACR BI-RADS Category 2: Benign Finding(s) 3342F PARENCHYMAL PATTERN: (A) - The breast(s) demonstrate(s) scattered fibroglandular densities. BI-RADS CATEGORY: (2) - 2 RECOMMENDATION: (ANNUAL) - Recommend routine annual screening mammography. [id number] 1 year screening LATERALITY: (B)
== END 2021-07-29 13:01 | disposition home or self-care (01) ==
LOC: DI.N 13:00
PROVIDERS: ATTEND Internal Medicine
DX: Z12.31 Encounter for screening mammogram for malignant neoplasm of breast (principal)

== ENCOUNTER 2021-08-12 11:26 | Outpatient (CLI) | payer MEDICARE, OTHER ==
[2021-08-12 12:11] VITALS: BP 125/82
--- NOTE | 2021-08-12 12:11 | SLEEP CARE CONSULTATION ---
Information from patient questionnaire entered by Ganga Beard MA. I have reviewed and concur with the information entered by Ganga Beard MA. This document represents the service I personally performed and the decisions made by , Romy Hammond ARNP. History of Present Illness Service Date and Time: 08/12/2021 1126 Previous diagnosis: Mild, Obstructive Sleep Apnea-Hypopnea Syndrome AHI: 10.2 (in 2015) Reason for follow up: other (10 MONTH F/U, RX FOR A NEW MACHINE) Equipment type: CPAP Equipment obtained from: Other ([facility]; getting supplies) Mask style: Nasal (over the nose (Wisp)) Mask brand: Respironics Backup mask available: No (will keep old mask when replaced) Last cushion change: 6 weeks Prior sleep studies: Yes Year and Where: 2015 - [facility] HPI additional information: HARITHA ARIAS was diagnosed to have mild, AHI 10.2, obstructive sleep apnea- hypopnea syndrome and returned today with spouse for CPAP therapy 10 month follow-up. Sleep Study - Results Prior sleep studies: Yes Year and Where: 2015 - [facility] CPAP Compliance Data - Data Reviewed with Patient Average duration of nightly device use: 8 HOURS 22 MINUTES Compliance rate %: 94.4 Current pressure setting (cmH2O): 9-11 Humidity settin Heated hose settin Average residual AHI: 1.8 Average large leak: 1 HOUR 10 MINUTES Subjective Missed days of use due to: reports: travel, other (RECALL MACHINE) Patient concerns: reports: air blowing in eyes (improves with adjustment), mask leak noise. denies: aerophagia, mask discomfort, condensation in mask/hose, nasal congestion, dry mouth, nose, throat, epistaxis, other Observed to snore while using device: No Current pressure setting perceived as: comfortable On therapy, patient: reports: sleeping better, awakening more refreshed, being more awake and alert during the day, more rested overall. denies: drowsiness while driving Initial [place] Sleepiness Scale score: 10 (in 2015) Current [place] Sleepiness Scale score: 5 (2021) Allergies and Home Medications Known drug allergies: Yes (PN) Drug allergies reviewed: Yes Home medication list reviewed: Yes (no changes) Allergy and home medication list: Allergies Penicillins Allergy (Verified 06/12/19 13:40) Rash amlodipine Adverse Reaction (Unknown, Verified 06/12/19 13:40) Unknown Review of Systems Review of systems same as previous: Yes (no changes) Physical Exam Vital signs obtained and entered by: Kisha MAGDALENO Blood Pressure: 125/82 (RIGHT, PULSE 53, RESP 14) Heart Rate: 59 O2 Saturation: 98 (WITH PAPER MASK ) Height: 5 ft Weight: 202 lb Body Mass Index: 39.4 BMI Classification: Obese Impression and Plan 1. Obstructive Sleep Apnea-Hypopnea Syndrome, mild, with good treatment compliance and good apnea control. On CPAP therapy, the patient has better sleep quality and is more rested overall. Haritha has a Dreamstation. Patient has already registered their device for the recall. Patient denies any black particles seen in machine or hoses, any unusual odors coming from device. Patient has not experienced any physical symptoms such as upper airway irritation, headache, skin or eye irritation, asthma, nausea/vomiting, difficulty breathing or chest pain. If patient is not able to sleep due to waking up choking, gasping for air or other respiratory distress that they may decide to continue using it until it is either replaced or repaired. Since the patients current machine is at least 5 years old, the patient is opting to update their device with a device that is not on the recall. Patient voiced understanding and agreement with plan. Patient's apnea severity and rationale for treatment to reduce apnea, improve sleep quality and reduce cardiovascular and cerebrovascular events was reviewed. I also reviewed the benefit of consistent device use of CPAP for hypertension and arrhythmia. * Continue auto CPAP pressure at 9-11 cmH2O * Update device * Update supplies * Notify me if snoring with mask or feeling that the pressure is too much or too little * Attempt to lose weight * Call this office if any problems using CPAP * Return for follow up one month after obtaining new device, or sooner if concerns arise Counseling Topics: Spare mask, Weight loss health impact Time Spent with Patient (minutes): 20
== END 2021-08-12 11:27 | disposition home or self-care (01) ==
LOC: SC 11:26
PROVIDERS: ATTEND Nurse Practitioner Family
DX: G47.33 Obstructive sleep apnea (adult) (pediatric) (principal); E66.9 Obesity, unspecified; Z68.39 Body mass index [BMI] 39.0-39.9, adult
CPT/HCPCS: 99213; G0463; 99212

== ENCOUNTER 2021-09-27 08:00 | Outpatient (CLI) | payer MEDICARE, OTHER ==
[2021-09-27 17:10] LABS: POTASSIUM 5.2 mmol/L (3.5-5.0)
== END 2021-09-27 08:01 | disposition home or self-care (01) ==
LOC: LAB.R 08:00
PROVIDERS: ATTEND Internal Medicine
DX: N18.9 Chronic kidney disease, unspecified (principal); Z79.899 Other long term (current) drug therapy; N05.9 Unspecified nephritic syndrome with unspecified morphologic changes; I50.32 Chronic diastolic (congestive) heart failure
CPT/HCPCS: 80048; 83880

== ENCOUNTER 2021-10-14 10:40 | Outpatient (CLI) | payer MEDICARE, OTHER ==
--- NOTE | 2021-10-14 15:48 | Ultrasound Report ---
PROCEDURE: Retroperitoneal INDICATIONS: ACUTE KIDNEY INJURY TECHNIQUE: Real-time scanning was performed of the kidneys and bladder with image documentation. COMPARISON: None. FINDINGS: Kidneys: Kidneys are normal in size. Right kidney measures 9.9 cm long; left kidney measures 9.4 cm long. Right renal cortical thickness is 1.0 cm; left renal cortical thickness is 1.0 cm. There is m ildly increased cortical echogenicity with accentuated cortical medullary differentiation. There is p rominence of the renal sinus fat bilaterally. No solid masses, hydronephrosis, or nephrolithiasis. S imple cyst in the lateral interpolar region of left kidney measuring 1.0 cm. Bladder: Pre-void bladder volume is 151 mL. Post-void residual is 0 mL. Pre-void images demonstrat e no intraluminal masses or stones. On pre-void images, bilateral ureteral jets are noted with color Doppler interrogation. (Of note, ureteral jets may not be detectable in up to 25% of cases due to i nsufficient differences in specific gravity between ureteral and bladder urine). Miscellaneous: No free abdominal fluid. IMPRESSION: 1. Kidney length and cortical thickness at the lower limits of normal. 2. Bilateral cortical echogenicity suggesting chronic medical renal disease. 3. No evidence of obstructive uropathy. Reviewed by: Juana Leung MD on 10/14/2021 3:46 PM PDT Approved by: Juana Leung MD on 10/14/2021 3:46 PM PDT Station ID: [id number]
== END 2021-10-14 10:41 | disposition home or self-care (01) ==
LOC: DI 10:40
PROVIDERS: ATTEND Internal Medicine Nephrology
DX: N17.9 Acute kidney failure, unspecified (principal)

== ENCOUNTER 2021-10-28 08:00 | Outpatient (CLI) | payer MEDICARE, OTHER ==
[2021-10-28 19:29] LABS: CREATININE,URINE 72.1 mg/dL; MICROALBUM/CREATININE RATIO,UR 62.4 ug/mg (<30.0); MICROALBUMIN,URINE 4.5 mg/dL (0-300.0)
== END 2021-10-28 23:59 | disposition home or self-care (01) ==
LOC: LAB.R 08:00
PROVIDERS: ATTEND Internal Medicine
DX: R80.1 Persistent proteinuria, unspecified (principal); N18.32 Chronic kidney disease, stage 3b
CPT/HCPCS: 82043; 82570

== ENCOUNTER 2022-03-10 12:26 | Outpatient (CLI) | payer MEDICARE, OTHER ==
[2022-03-10 13:29] VITALS: BP 134/78
--- NOTE | 2022-03-10 13:29 | SLEEP CARE CONSULTATION ---
Information from patient questionnaire entered by Yaquelin Fofana. I have reviewed and concur with the information entered by Yaquelin Fofana. This document represents the service I personally performed and the decisions made by me, Romy Hammond ARNP. History of Present Illness Service Date and Time: 03/10/2022 1226 Previous diagnosis: Mild, Obstructive Sleep Apnea-Hypopnea Syndrome AHI: 10.2 (in 2016) Reason for follow up: first compliance Accompanied by: Spouse Equipment type: CPAP (RENU) Equipment obtained from: Other ([facility]; getting supplies) Mask style: Nasal (over the nose (Wisp)) Backup mask available: Yes (other mask) Last cushion change: 1 week Prior sleep studies: Yes Year and Where: 2015 - [facility] HPI additional information: EUNICE ARIAS was diagnosed to have mild, AHI 10.2, obstructive sleep apnea- hypopnea syndrome and returned today for CPAP therapy first compliance after updating device follow-up. Sleep Study - Results Prior [facility]: Yes [facility] Compliance Data - Data Reviewed with Patient Average duration of nightly device use: 7 hours, 39 minutes Compliance rate %: 90.6 (12/14/21 to 03/08/22; 79/85 days used) Current pressure setting (cmH2O): 9-11 Average residual AHI: 0.7 Central apnea: 0.1 Average large leak: 1 minutes Subjective Missed days of use due to: reports: travel (camping) Patient concerns: reports: mask discomfort, air blowing in eyes. denies: a erophagia, mask leak noise, condensation in mask/hose, nasal congestion, dry mouth, nose, throat, epistaxis Observed to snore while using device: No Current pressure setting perceived as: comfortable On therapy, patient: reports: sleeping better, awakening more refreshed, being more awake and alert during the day, more rested overall. denies: drowsiness while driving Initial [place] Sleepiness Scale score: 10 (in 2015) Current [place] Sleepiness Scale score: 5 (03/10/22) Allergies and Home Medications Drug allergies reviewed: Yes (pcn, amlodipine) Home medication list reviewed: Yes (no changes) Allergy and home medication list: Allergies Penicillins Allergy (Verified 06/12/19 13:40) Rash amlodipine Adverse Reaction (Unknown, Verified 06/12/19 13:40) Unknown Review of Systems Review of systems same as previous: Yes (no changes) Physical Exam Vital signs obtained and entered by: Ryann MAGDALENO Blood Pressure: 134/78 (LEFT ARM ) Cuff size: regular Heart Rate: 72 O2 Saturation: 98 Height: 5 ft Weight: 207 lb Body Mass Index: 40.4 BMI Classification: Morbidly Obese Impression and Plan 1. Obstructive Sleep Apnea-Hypopnea Syndrome, mild, with good treatment compliance and good apnea control. On CPAP therapy, the patient has better sleep quality and is more rested overall. Patient asking for something to help reduce the lines on her face. We gave her a pamphlet for Pad A Cheek that has barriers to reduce lines on face. She voiced understanding. Patient received a DreamStation 2 from [employer]. She states she will continue to use Renu for now and keep the DreamStation 2 for a backup. Patient's apnea severity and rationale for treatment to reduce apnea, improve sleep quality and reduce cardiovascular and cerebrovascular events was reviewed. I also reviewed the benefit of consistent device use of CPAP for hypertension and arrhythmia. 2. Obesity, unspecified. Currently patients BMI is 40.4. Obesity increases the risk of apnea, CPAP pressure requirements and overall health risks especially cardiovascular and diabetes. Thus patient is advised to lose weight. * Continue CPAP pressure at 9-11 cmH2O * Notify me if snoring with mask or feeling that the pressure is too much or too little * Attempt to lose weight * Call this office if any problems using CPAP * Return for follow up in 1 year, or sooner if concerns arise Counseling Topics: Spare mask, Weight loss health impact Visit Type: In Office Time Spent with Patient (minutes): 22 Provider Statement: I spent 100% of the Face to Face Visit with the patient with greater than 50% spent counseling the patient and coordination of care.
== END 2022-03-10 12:27 | disposition home or self-care (01) ==
LOC: SC 12:26
PROVIDERS: ATTEND Nurse Practitioner Family
DX: G47.33 Obstructive sleep apnea (adult) (pediatric) (principal); E66.01 Morbid (severe) obesity due to excess calories; Z68.41 Body mass index [BMI] 40.0-44.9, adult
CPT/HCPCS: 99213; G0463; 99212

== ENCOUNTER 2022-04-29 10:51 | Outpatient (CLI) | payer MEDICARE, OTHER | END 2022-04-29 10:52 | disposition home or self-care (01) | LOC: LAB.N 10:51 | PROVIDERS: ATTEND Internal Medicine | DX: I48.91 Unspecified atrial fibrillation (principal) | CPT/HCPCS: 36415; 36416; 85610; 85730 ==

== ENCOUNTER 2022-05-24 13:55 | Outpatient (CLI) | payer MEDICARE, OTHER | END 2022-05-24 13:56 | disposition home or self-care (01) | LOC: LAB.N 13:55 | PROVIDERS: ATTEND Internal Medicine | DX: D64.9 Anemia, unspecified (principal); I48.91 Unspecified atrial fibrillation | CPT/HCPCS: 36416; 85610 ==

== ENCOUNTER 2022-06-02 11:54 | Outpatient (CLI) | payer MEDICARE, OTHER | END 2022-06-02 11:55 | disposition home or self-care (01) | LOC: LAB.N 11:54 | PROVIDERS: ATTEND Internal Medicine | DX: I48.91 Unspecified atrial fibrillation (principal); D64.9 Anemia, unspecified | CPT/HCPCS: 36415; 36416; 85610 ==

== ENCOUNTER 2022-06-16 14:20 | Outpatient (CLI) | payer MEDICARE, OTHER | END 2022-06-16 14:21 | disposition home or self-care (01) | LOC: LAB.N 14:20 | PROVIDERS: ATTEND Internal Medicine | DX: D64.9 Anemia, unspecified (principal); I48.91 Unspecified atrial fibrillation | CPT/HCPCS: 36416; 85610 ==

== ENCOUNTER 2022-07-07 12:17 | Outpatient (CLI) | payer MEDICARE, OTHER | END 2022-07-07 12:18 | disposition home or self-care (01) | LOC: LAB.N 12:17 | PROVIDERS: ATTEND Internal Medicine | DX: D64.9 Anemia, unspecified (principal); I48.91 Unspecified atrial fibrillation | CPT/HCPCS: 36416; 85610 ==

== ENCOUNTER 2022-07-28 10:11 | Outpatient (CLI) | payer MEDICARE, OTHER | END 2022-07-28 10:12 | disposition home or self-care (01) | LOC: LAB.N 10:11 | PROVIDERS: ATTEND Internal Medicine | DX: D64.9 Anemia, unspecified (principal); I48.91 Unspecified atrial fibrillation | CPT/HCPCS: 36416; 85610 ==

== ENCOUNTER 2022-08-25 12:20 | Outpatient (CLI) | payer MEDICARE, OTHER | END 2022-08-25 12:21 | disposition home or self-care (01) | LOC: LAB.N 12:20 | PROVIDERS: ATTEND Internal Medicine | DX: D64.9 Anemia, unspecified (principal); I48.91 Unspecified atrial fibrillation | CPT/HCPCS: 36416; 85610 ==

== ENCOUNTER 2022-09-08 13:57 | Outpatient (CLI) | payer MEDICARE, OTHER | END 2022-09-08 13:58 | disposition home or self-care (01) | LOC: LAB.N 13:57 | PROVIDERS: ATTEND Internal Medicine | DX: D64.9 Anemia, unspecified (principal); I48.91 Unspecified atrial fibrillation | CPT/HCPCS: 36416; 85610 ==

== ENCOUNTER 2022-09-29 13:17 | Outpatient (CLI) | payer MEDICARE, OTHER | END 2022-09-29 23:59 | disposition home or self-care (01) | LOC: LAB.N 13:17 | PROVIDERS: ATTEND Internal Medicine | DX: D64.9 Anemia, unspecified (principal); I48.91 Unspecified atrial fibrillation | CPT/HCPCS: 36416; 85610 ==

== ENCOUNTER 2022-10-28 11:16 | Outpatient (CLI) | payer MEDICARE, OTHER | END 2022-10-28 11:17 | disposition home or self-care (01) | LOC: LAB.N 11:16 | PROVIDERS: ATTEND Internal Medicine | DX: D64.9 Anemia, unspecified (principal); I48.91 Unspecified atrial fibrillation | CPT/HCPCS: 36416; 85610 ==

== ENCOUNTER 2022-11-03 11:35 | Outpatient (CLI) | payer MEDICARE, OTHER | END 2022-11-03 11:36 | disposition home or self-care (01) | LOC: LAB.N 11:35 | PROVIDERS: ATTEND Internal Medicine | DX: D64.9 Anemia, unspecified (principal); I48.91 Unspecified atrial fibrillation | CPT/HCPCS: 36416; 85610 ==

== ENCOUNTER 2022-11-17 11:39 | Outpatient (CLI) | payer MEDICARE, OTHER | END 2022-11-17 11:40 | disposition home or self-care (01) | LOC: LAB.N 11:39 | PROVIDERS: ATTEND Internal Medicine | DX: D64.9 Anemia, unspecified (principal); I48.91 Unspecified atrial fibrillation | CPT/HCPCS: 36416; 85610 ==

== ENCOUNTER 2022-11-24 12:38 | Outpatient (CLI) | payer MEDICARE, OTHER | END 2022-11-24 12:39 | disposition home or self-care (01) | LOC: LAB.N 12:38 | PROVIDERS: ATTEND Internal Medicine | DX: D64.9 Anemia, unspecified (principal); I48.91 Unspecified atrial fibrillation | CPT/HCPCS: 36416; 85610 ==

== ENCOUNTER 2022-11-30 12:05 | Emergency (ER) | payer MEDICARE, OTHER ==
--- NOTE | 2022-11-30 12:24 | ED Physician Documentation ---
PD HPI FOCAL NEURO - Stated complaint Stated Complaint: RT SIDE WEAKNESS - Chief complaint Chief Complaint: Neuro - History obtained from History obtained from: Patient - Additional information Additional information: 77-year-old woman with atrial fibrillation on warfarin went to bed normal condition last night but woke up this morning at 3 AM with right-sided weakness and this worried her so she can go back to bed. She feels heavy in the right arm and right leg. She went to her physician's office who referred her here for stroke work-up. PD PAST MEDICAL HISTORY - Past Medical History Cardiovascular: Hypertension, High cholesterol, Arrhythmia Respiratory: None, Sleep apnea, CPAP use Neuro: Other Endocrine/Autoimmune: None GI: Colon polyps : Incontinence HEENT: None Musculoskeletal: Osteoarthritis, Gout - Past Surgical History Past Surgical History: Yes General: Colonoscopy Ortho: Other /THREAD GRINDER TOOL: section HEENT: Cataracts, Other - Present Medications Home Medications: Ambulatory Orders Medication Instructions Recorded Confirmed Warfarin Sodium [Coumadin] 2 mg PO DAILY 05/26/16 06/11/19 allopurinoL [Zyloprim] 100 mg PO DAILY 05/26/16 06/11/19 Doxazosin Mesylate 1 tab ORAL DAILY PM 12/19/18 06/12/19 Losartan Potassium 1 tab ORAL DAILY 12/19/18 06/12/19 Metoprolol Tartrate 25 tab ORAL BID 12/19/18 06/12/19 Simvastatin 1 tab ORAL DAILY PM 12/19/18 06/11/19 Furosemide 20 mg PO DAILY 06/11/19 06/11/19 Enoxaparin [Lovenox] 1 BID 06/12/19 - Allergies Allergies/Adverse Reactions: Allergies Allergy/AdvReac Type Severity Reaction Status Date / Time Penicillins Allergy Rash Verified 11/30/22 12:14 amlodipine AdvReac Unknown Unknown Verified 11/30/22 12:14 - Social History Does the pt smoke?: No Smoking Status: Never smoker Does the pt drink ETOH?: No Does the pt have substance abuse?: No - POLST Patient has POLST: No PD ED PE NORMAL - Vitals Vital signs reviewed: Yes - General General: Alert and oriented X 3, No acute distress - HEENT HEENT: PERRL, EOMI - Cardiac Cardiac: Other (Irregularly irregular) - Respiratory Respiratory: No respiratory distress, Clear bilaterally - Abdomen Abdomen: Non tender - Back Back: No CVA TTP, No spinal TTP - Derm Derm: Normal color, Warm and dry - Extremities Extremities: No edema, No calf tenderness / cord - Neuro Neuro: Alert and oriented X 3, Normal speech NIHSS - Time Time: 12:20 - Level of Consciousness Level of consciousness: (0) Alert, Keenly responsive LOC Questions: (0) Answers both Q's correct LOC Commands: (0) Performs both correctly - Gaze Best Gaze: (0) Normal - Visual Visual: (0) No loss - Facial Palsy Facial Palsy: (1) Minor paralysis (Right side) - Motor Arms (both separate) Motor Arm (right): (1) Drift (Very minor) Motor Arm (left): (0) No drift - Motor Legs (both separate) Motor Leg (right): (0) No drift Motor Leg (left): (0) No drift - Limb Ataxia Limb Ataxia: (0) Absent - Sensory Sensory: (0) Normal - Best Language Best Language: (0) No aphasia - Dysarthria Dysarthria: (0) Normal - Extinction and Inattention (formally neg Extinction and inattention: (0) No abnormality - Total Score/Results Total Score/Result: 2 Results - Vitals Vitals: Vital Signs - 24 hr 11/30/22 11/30/22 11/30/22 12:09 12:34 14:17 Temperature 36.2 C L Heart Rate 59 L 68 Respiratory 16 17 17 Rate Blood Pressure 167/72 H 191/84 H O2 Saturation 97 99 Oxygen O2 Source Room air - EKG (time done) 1314 EKG releavant findings:: EKG personally interpreted by author of this note. Relevant findings are: Rate: Rate (enter#) (7) [place]: Normal Intervals: RBBB Ischemia: Normal ST segments - Labs Labs: Laboratory Tests 11/30/22 11/30/22 11/30/22 12:25 12:25 12:25 WBC 5.8 RBC 5.07 Hgb 11.2 L Hct 34.1 L MCV 67.3 L MCH 22.1 L MCHC 32.8 RDW 17.3 H Plt Count 146 Neut # (Auto) 3.2 Lymph # (Auto) 2.0 [place] # (Auto) 0.4 Eos # (Auto) 0.1 Baso # (Auto) 0.0 Absolute Nucleated RBC 0.00 Nucleated RBC % 0.0 Manual Slide Review Indicated RBC Morph Micro Appear 4+ ANISOCYTOSIS PT 26.0 H INR 2.4 H Sodium 139 Potassium 3.8 Chloride 106 Carbon Dioxide 25 Anion Gap 8.0 BUN 39 H Creatinine 1.7 H Estimated GFR (MDRD) 29 L Glucose 129 H Calcium 9.1 Total Bilirubin 0.9 AST 21 ALT 15 Alkaline Phosphatase 63 Total Protein 7.7 Albumin 3.7 Globulin 4.0 Albumin/Globulin Ratio 0.9 L Lipase 30 - Rads (name of study) CT of the head without contrast demonstrates remote right frontal infarct without acute infarct, or bleed. Relevant Findings:: Final report received, EMP independent interpretation of test CT angiography of the head and neck shows mild bilateral carotid disease and no acute stroke or clot. Old right MCA infarct. Relevant Findings:: Final report received, EMP independent interpretation of test PD Medical Decision Making - ED course Complexity details: reviewed results (CBC showing moderate chronic anemia, within range from prior. INR therapeutic at 2.4. She has chronic kidney disease with her creatinine being about where it usually is.) ED course: 77-year-old woman presents with Symptoms of stroke with of at least 9 hours duration with therapeutic INR so multiple contraindications to tPA. NIH stroke scale fairly low at 2. She went over for CT which showed prior right encephalomalacia present on prior CT but no bleed. CTA is pending. Spoke with telestroke neurologist, Dr. Crocker at approximately 1 PM who recommended MRI and follow-up on the CTAs. Agrees tPA is not indicated. Subsequently an MRI of the brain was done without any concerning acute findings. She did have evidence of the old stroke which is at least a few years old now affecting the right side of the brain. She was reexamined at 3:45 PM and her right-sided weakness has resolved. She is maximally medically managed for TIA given her anticoagulation for her A-fib. Departure - Departure Disposition: 01 Home, Self Care Clinical Impression: Transient ischemic attack Condition: Good Record reviewed to determine appropriate education?: Yes Instructions: ED Transient Ischemic Attack Comments: Thankfully there was no evidence of stroke on your MRI so I do not expect any lasting issues from today. Return if you worsen, follow-up with Dr. Reyes either later this week or early next week. Continue current medications.
[2022-11-30 12:35] LABS: BASOPHILS % (AUTO) 0.5 %; EOSINOPHILS # (AUTO) 0.1 10^3/uL (0.0-0.7); EOSINOPHILS % (AUTO) 2.1 %; HCT - HEMATOCRIT 34.1 % (37.0-47.0); HGB - HEMOGLOBIN 11.2 g/dL (12.0-16.0); LYMPHOCYTES % (AUTO) 34.7 %; MEAN CORPUSCULAR HEMOGLOBIN 22.1 pg (27.0-31.0); MEAN CORPUSCULAR HGB CONC 32.8 g/dL (32.0-36.0); MEAN CORPUSCULAR VOLUME 67.3 fL (81.0-99.0); MONOCYTES # (AUTO) 0.4 10^3/uL (0.0-1.0); MONOCYTES % (AUTO) 6.6 %; NEUTROPHILS # (AUTO) 3.2 10^3/uL (1.5-6.6); NEUTROPHILS % (AUTO) 55.9 %; PLT - PLATELET COUNT 146 10^3/uL (130-450); RED BLOOD COUNT 5.07 10^6/uL (4.20-5.40); RED CELL DISTRIBUTION WIDTH 17.3 % (12.0-15.0); WHITE BLOOD COUNT 5.8 x10^3/uL (4.8-10.8)
[2022-11-30 12:37] LABS: SLIDE REVIEW? Indicated
[2022-11-30 12:40] LABS: INR 2.4 (0.8-1.2)
[2022-11-30 12:46] LABS: ALBUMIN 3.7 g/dL (3.2-5.5); ALBUMIN/GLOBULIN RATIO 0.9 (1.0-2.2); BILIRUBIN,TOTAL 0.9 mg/dL (0.2-1.0); CALCIUM 9.1 mg/dL (8.5-10.3); CREATININE 1.7 mg/dL (0.4-1.0); POTASSIUM 3.8 mmol/L (3.5-5.0); TOTAL PROTEIN 7.7 g/dL (6.7-8.2)
[2022-11-30 12:55] LABS: RBC MORPHOLOGY (MULTIPLE) 4+ ANISOCYTOSIS (NORMAL)
--- NOTE | 2022-11-30 13:01 | CT Report ---
PROCEDURE: Head W/O Stroke Protocol INDICATIONS: Neuro deficit, acute, stroke suspected TECHNIQUE: Noncontrast 4.5 mm thick angled axial sections acquired from the foramen magnum to the vertex, with c oronal reformats. For radiation dose reduction, the following was used: automated exposure control, adjustment of mA and/or kV according to patient size. COMPARISON: Head CT 06/11/2019 FINDINGS: CSF spaces: Basal cisterns are patent. No extra-axial fluid collections. Ventricles are normal in size and shape. Brain: No midline shift. Remote right frontal infarct redemonstrated. [place]-white matter interface is otherwise unremarkable. No intracranial masses or hemorrhage. Skull and face: Calvarium and visualized facial bones are intact, without suspicious lesions. Sinuses: Visualized sinuses and mastoids are clear. IMPRESSION: No intracranial hemorrhage or other acute intracranial abnormality. This study fulfills neurological imaging criteria for inclusion or exclusion of acute stroke therapie s based on available published neurological imaging guidelines. Reviewed by: Qamar Smith MD on 11/30/2022 1:00 PM PDT Approved by: Qamar Smith MD on 11/30/2022 1:00 PM PDT Station ID: [id number]
--- NOTE | 2022-11-30 13:12 | CT Report ---
PROCEDURE: ANGIO HEAD W/WO INDICATIONS: CVA sx CONTRAST: 80ml Omnipaque 350 TECHNIQUE: Precontrast 4.5 mm thick angled axial sections acquired from the foramen magnum to the vertex. Afte r the administration of intravenous contrast, 1 mm thick sections acquired through the [place] of [place] is. Postcontrast 4.5 mm thick sections then re-acquired from the foramen magnum to the vertex. 3-di mensional lyygeya-yxeckggtk-zzbjfzdnxx (MIP) and/or volume rendering reformats were acquired of the c entral intracranial vasculature. For radiation dose reduction, the following was used: automated ex posure control, adjustment of mA and/or kV according to patient size. COMPARISON: CTA head from the same time as well as CT head without contrast immediately prior FINDINGS: Image quality: Excellent. Anterior circulation: Intracranial internal carotid arteries are normal in size and flow. The flow within the paired anterior cerebral arteries is normal and symmetric. The flow within the middle cer ebral arteries is normal and symmetric. The anterior communicating artery is seen. No aneurysms are seen. Posterior circulation: Visualized portions of the vertebral arteries demonstrate normal caliber, and join to form a normal appearing basilar artery. Flow within the posterior cerebral arteries is norm al and symmetric. No aneurysms are seen. CSF spaces: Ventricles are normal in size and shape. Basal cisterns are patent. No extra-axial flu id collections. Brain: No midline shift. No intracranial bleeds or masses. [place]-white matter interface appears int act. Moderate-sized area of encephalomalacia in the right frontal region deep white matter extending to the subcortical region, likely representing a right MCA distribution chronic deep white matter an d subcortical infarct Skull and face: Calvarium and facial bones appear intact, without suspicious lesions. Sinuses: Visualized sinuses and mastoids are clear. IMPRESSION: 1. Unremarkable CTA head. No stenosis, aneurysm, occlusion, or focal filling defect. 2. 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 No acute intracranial process. Above discussed with Robb Bernstein MD at the time of dictation on 11/30/2022 at 1311 hours. Reviewed by: Aurelio Medel MD on 11/30/2022 1:11 PM PDT Approved by: Aurelio Medel MD on 11/30/2022 1:11 PM PDT Station ID: [id number]
--- NOTE | 2022-11-30 13:13 | CT Report ---
PROCEDURE: ANGIO NECK W INDICATIONS: CVA sx CONTRAST: 80ml Omnipaque 350 TECHNIQUE: After the administration of intravenous contrast, 1.5 mm axial sections acquired from the aortic arch to the [place] of [place]. Coronal 3-D maximum intensity projection (MIP) and/or volume rendering ref ormats were then performed. For radiation dose reduction, the following was used: automated exposur e control, adjustment of mA and/or kV according to patient size. COMPARISON: CT head from the same date. FINDINGS: Image quality: Excellent. Carotid system: The great vessels demonstrate a conventional anatomy as they arise from the aortic a rch. The origins of the common carotid arteries appear patent. The common carotid arteries demonstr ate normal calibers and courses. The bifurcation regions appear normal bilaterally. The internal ca rotid arteries demonstrate mild proximal stenotic disease, less than 50%. Posterior circulation: The origins of the vertebral arteries appear patent. The more superior porti ons of the vertebral arteries demonstrate normal course and caliber. They join to form a normal appe aring basilar artery. Soft tissues: Visualized neck soft tissues demonstrate no suspicious abnormalities. The thyroid is normal in size and there are no incidental findings. Bones: No suspicious bony lesions. Visualized cervical spine appears normally aligned. IMPRESSION: Mild bilateral proximal internal carotid artery stenotic disease, less than 50% Above discussed with Robb Bernstein MD at the time of dictation on 11/30/2022 at 1311 hours. The estimate of stenosis included in the report of the imaging study was calculated using the NASCET method CLINICAL RECOMMENDATION STATEMENTS: In patients <35 years with an ITN detected on CT, MRI, or extrathyroidal ultrasound, the Committee re commends further evaluation with dedicated thyroid ultrasound if the nodule is "e1 cm and has no susp icious imaging features, and if the patient has normal life expectancy. In patients "e35 years with an ITN detected on CT, MRI, or extrathyroidal ultrasound, the Committee r ecommends further evaluation with dedicated thyroid ultrasound if the nodule is "e1.5 cm and has no s uspicious imaging features, and if the patient has normal life expectancy. (ACR, 2014) Reviewed by: Aurelio Medel MD on 11/30/2022 1:12 PM PDT Approved by: Aurelio Medel MD on 11/30/2022 1:12 PM PDT Station ID: [id number]
--- NOTE | 2022-11-30 15:44 | MRI Report ---
PROCEDURE: MRI brain without contrast INDICATIONS: Neurologic deficit TECHNIQUE: Noncontrast axial T1 spin echo, axial T2 fast spin echo, sagittal and axial FLAIR, coronal T2 fast sp in echo, axial gradient echo, axial diffusion and ADC through the brain. COMPARISON: CT brain 06/11/2019 FINDINGS: Image quality: Excellent. CSF Spaces: Basal cisterns are patent. No extra-axial fluid collections. Ventricles are normal in size and shape. Brain: Right frontal encephalomalacia and gliosis noted. Mild atrophy and white matter chronic isch emic change. No intracranial masses or hemorrhage. [place]/white matter interface is otherwise normal. Brainstem appears normal. Diffusion-weighted images demonstrate no acute infarct. Normal intravasc ular flow voids are present. Skull and face: Calvarium has normal marrow signal. Orbits appear normal. Sinuses: Sinuses and mastoids are clear. IMPRESSION: 1. Atrophy and chronic ischemic change without acute infarct, hemorrhage or mass lesion. 2. Old right frontal infarct, stable from 2019 Reviewed by: Gary Ann MD on 11/30/2022 2:42 PM AKROBYN Approved by: Gary Ann MD on 11/30/2022 2:42 PM AKDT Station ID: [id number]
[2022-11-30 16:06] VITALS: BP 172/80
== END 2022-11-30 16:05 | disposition home or self-care (01) ==
LOC: ED 12:05
DX: G45.9 Transient cerebral ischemic attack, unspecified (principal); I48.91 Unspecified atrial fibrillation; Z79.01 Long term (current) use of anticoagulants; I10 Essential (primary) hypertension
CPT/HCPCS: 36415; 70450; 70496; 70498; 70551; 80053; 83690; 85025; 85610; 93005; 99284; Q9967

== ENCOUNTER 2022-12-01 18:43 | Emergency (ER) | payer MEDICARE, OTHER ==
[2022-12-01 19:16] LABS: BASOPHILS % (AUTO) 0.6 %; EOSINOPHILS # (AUTO) 0.1 10^3/uL (0.0-0.7); EOSINOPHILS % (AUTO) 1.9 %; HCT - HEMATOCRIT 34.1 % (37.0-47.0); HGB - HEMOGLOBIN 11.4 g/dL (12.0-16.0); LYMPHOCYTES # (AUTO) 1.6 10^3/uL (1.5-3.5); LYMPHOCYTES % (AUTO) 29.3 %; MEAN CORPUSCULAR HEMOGLOBIN 22.5 pg (27.0-31.0); MEAN CORPUSCULAR HGB CONC 33.4 g/dL (32.0-36.0); MEAN CORPUSCULAR VOLUME 67.3 fL (81.0-99.0); MEAN PLATELET VOLUME 10.8 fL (7.9-10.8); MONOCYTES # (AUTO) 0.4 10^3/uL (0.0-1.0); MONOCYTES % (AUTO) 7.3 %; NEUTROPHILS # (AUTO) 3.2 10^3/uL (1.5-6.6); NEUTROPHILS % (AUTO) 60.5 %; PLT - PLATELET COUNT 146 10^3/uL (130-450); RED BLOOD COUNT 5.07 10^6/uL (4.20-5.40); RED CELL DISTRIBUTION WIDTH 17.3 % (12.0-15.0); WHITE BLOOD COUNT 5.3 x10^3/uL (4.8-10.8)
[2022-12-01 19:24] LABS: BUN - BLOOD UREA NITROGEN 36 mg/dL (6-20); CALCIUM 9.1 mg/dL (8.5-10.3); CARBON DIOXIDE - CO2 25 mmol/L (21-32); CHLORIDE 106 mmol/L (101-111); CREATININE 1.8 mg/dL (0.4-1.0); ETOH - ETHANOL < 5.0 mg/dL; GFR - MDRD 27 (>89); GLUCOSE 160 mg/dL (70-100); POTASSIUM 3.7 mmol/L (3.5-5.0); SODIUM 140 mmol/L (135-145)
--- NOTE | 2022-12-01 19:25 | ED Physician Documentation ---
History of Present Illness - Stated complaint Stated Complaint: SLURRED SPEACH - Chief complaint Chief Complaint: Neuro - History obtained from History obtained from: Patient, Family - Additonal information Additional information: 77-year-old woman with history of A-fib on warfarin. I saw her yesterday for right-sided symptoms that had been going on since 3 AM yesterday. She was not a tPA candidate due to adequate anticoagulation and 9 hours of symptoms. She had CT and CT angiography which were negative except for prior encephalomalacia on the right side. Also an MRI without acute evidence of acute stroke. Last night she feels worse again with more right-sided weakness and slurred speech. There is no headache. PD PAST MEDICAL HISTORY - Past Medical History Cardiovascular: Hypertension, High cholesterol, Arrhythmia Respiratory: None, Sleep apnea, CPAP use Neuro: Other Endocrine/Autoimmune: None GI: Colon polyps : Incontinence HEENT: None Musculoskeletal: Osteoarthritis, Gout - Past Surgical History Past Surgical History: Yes General: Colonoscopy Ortho: Other /[employer] WORK[employer]: section HEENT: Cataracts, Other - Present Medications Home Medications: Ambulatory Orders Medication Instructions Recorded Confirmed Warfarin Sodium [Coumadin] 2 mg PO DAILY 05/26/16 06/11/19 allopurinoL [Zyloprim] 100 mg PO DAILY 05/26/16 06/11/19 Doxazosin Mesylate 1 tab ORAL DAILY PM 12/19/18 06/12/19 Losartan Potassium 1 tab ORAL DAILY 12/19/18 06/12/19 Metoprolol Tartrate 25 tab ORAL BID 12/19/18 06/12/19 Simvastatin 1 tab ORAL DAILY PM 12/19/18 06/11/19 Furosemide 20 mg PO DAILY 06/11/19 06/11/19 Enoxaparin [Lovenox] 1 BID 06/12/19 - Allergies Allergies/Adverse Reactions: Allergies Allergy/AdvReac Type Severity Reaction Status Date / Time Penicillins Allergy Rash Verified 11/30/22 12:14 amlodipine AdvReac Unknown Unknown Verified 11/30/22 12:14 - Social History Does the pt smoke?: No Smoking Status: Never smoker Does the pt drink ETOH?: No Does the pt have substance abuse?: No - POLST Patient has POLST: No PD ED PE NORMAL - Vitals Vital signs reviewed: Yes - General General: Alert and oriented X 3, No acute distress - HEENT HEENT: PERRL, EOMI - Cardiac Cardiac: No murmur, Other (Irregularly irregular) - Respiratory Respiratory: No respiratory distress, Clear bilaterally - Abdomen Abdomen: Non tender, Non distended - Extremities Extremities: No edema, No calf tenderness / cord - Neuro Neuro: Alert and oriented X 3, Normal speech Results - Vitals Vitals: Vital Signs - 24 hr 12/01/22 12/01/22 18:56 20:52 Temperature 36.7 C Heart Rate 75 64 Respiratory 18 16 Rate Blood Pressure 158/82 H 179/116 H O2 Saturation 99 97 Oxygen O2 Source Room air - EKG (time done) 1913 EKG releavant findings:: EKG personally interpreted by author of this note. Relevant findings are: Rate: Rate (enter#) (69) Rhythm: Atrial fibrillation Intervals: RBBB Ischemia: Normal ST segments - Labs Labs: Laboratory Tests 12/01/22 12/01/22 12/01/22 19:09 19:09 19:09 WBC 5.3 RBC 5.07 Hgb 11.4 L Hct 34.1 L MCV 67.3 L MCH 22.5 L MCHC 33.4 RDW 17.3 H Plt Count 146 MPV 10.8 Neut # (Auto) 3.2 Lymph # (Auto) 1.6 [place] # (Auto) 0.4 Eos # (Auto) 0.1 Baso # (Auto) 0.0 Absolute Nucleated RBC 0.00 Nucleated RBC % 0.0 Manual Slide Review Indicated Platelet Estimate NORMAL (130-450,000) Platelet Morphology NORMAL APPEARANCE RBC Morph Micro Appear 2+ MICROCYTOSIS PT 24.4 H INR 2.3 H Sodium 140 Potassium 3.7 Chloride 106 Carbon Dioxide 25 Anion Gap 9.0 BUN 36 H Creatinine 1.8 H Estimated GFR (MDRD) 27 L Glucose 160 H Calcium 9.1 Ethyl Alcohol < 5.0 - Rads (name of study) CT and CTA of the brain and neck, probably an old large vessel occlusion on the right, no large vessel occlusion on the left, some plaquing in the car Relevant Findings:: Final report received, EMP independent interpretation of test PD Medical Decision Making - ED course ED course: 77-year-old woman who today for TIA and has recurrent TIA probably today. Work- up yesterday was negative including MRI. She went back over for CTA, there is no large vessel occlusion on the left which would correspond with any symptoms today on the right. She is still therapeutic on her INR, and her lab work otherwise is grossly unchanged with chronic renal insufficiency and mild to moderate anemia. On reexamination after the CT angiography her symptoms were again resolving. Her daughter who is a neuro stroke certified nurse was on the phone with us and we discussed that unfortunately while she is having staccato TIAs, she is probably maximally medically managed. I offered observation in the hospital, but knowing that since she is on warfarin, the therapeutic utility of this is limited she would like her discharge. Departure - Departure Disposition: Home, Self Care Clinical Impression: Transient ischemic attack Condition: Good Record reviewed to determine appropriate education?: Yes Instructions: ED Transient Ischemic Attack Comments: You are seen today for another TIA. You are maximally medically managed on anticoagulation for your A-fib and stroke risk. I have offered observation in the hospital but with limited therapeutic utility given the circumstances. Follow-up with Dr. Reyes on Monday as scheduled. Continue current medications. NIHSS - Time Time: 19:16 - Level of Consciousness Level of consciousness: (0) Alert, Keenly responsive LOC Questions: (0) Answers both Q's correct LOC Commands: (0) Performs both correctly - Gaze Best Gaze: (0) Normal - Visual Visual: (0) No loss - Facial Palsy Facial Palsy: (1) Minor paralysis (Right side) - Motor Arms (both separate) Motor Arm (right): (1) Drift Motor Arm (left): (0) No drift - Motor Legs (both separate) Motor Leg (right): (2) Some effort against gravity Motor Leg (left): (0) No drift - Limb Ataxia Limb Ataxia: (0) Absent - Sensory Sensory: (1) Uduw-kd-nplxhhuq loss (Right leg, not the arm or face) - Best Language Best Language: (0) No aphasia - Dysarthria Dysarthria: (0) Normal - Extinction and Inattention (formally neg Extinction and inattention: (0) No abnormality - Total Score/Results Total Score/Result: 5
[2022-12-01 19:28] LABS: INR 2.3 (0.8-1.2); PT - PROTHROMBIN TIME 24.4 secs (9.9-12.6)
[2022-12-01] MEDS ORDERED: iohexoL-300 100 ML VIAL ONE (19:30)
[2022-12-01] MEDS ORDERED: SODIUM CHLORIDE 0.9% 1,000 ML IV STA (19:40)
[2022-12-01 19:42] LABS: PLATELET ESTIMATE, MANUAL NORMAL (130-450,000) (NORMAL); PLATELET MORPHOLOGY NORMAL APPEARANCE (NORMAL); SLIDE REVIEW? Indicated
[2022-12-01] MEDS ORDERED: iohexoL-300 100 ML VIAL IVP ONE (20:43)
--- NOTE | 2022-12-01 21:22 | CT Report ---
PROCEDURE: ANGIO HEAD W/WO INDICATIONS: stroke sx CONTRAST: 80mL Omni 300 TECHNIQUE: Precontrast 4.5 mm thick angled axial sections acquired from the foramen magnum to the vertex. Afte r the administration of intravenous contrast, 1 mm thick sections acquired through the [place] is. Postcontrast 4.5 mm thick sections then re-acquired from the foramen magnum to the vertex. 3-di mensional hjaephi-ibcelrczx-ebgahbshpr (MIP) and/or volume rendering reformats were acquired of the c entral intracranial vasculature. For radiation dose reduction, the following was used: automated ex posure control, adjustment of mA and/or kV according to patient size. COMPARISON: CT angiogram head 11/30/2022 FINDINGS: Image quality: Excellent. BRAIN: CSF spaces: Basal cisterns are patent. No extra-axial fluid collections. Ventricles are normal in size and shape. Brain: No intracranial hemorrhage, mass, or mass effect. There is cortical and subcortical encephal omalacia redemonstrated within the right frontal lobe and insular cortex consistent with sequelae of a prior infarct. No abnormal intracranial enhancement. Skull and face: Calvarium and facial bones appear intact, without suspicious lesions. Orbits appear normal. Sinuses: Sinuses and mastoids are clear. HEAD CT ANGIOGRAPHY: Anterior circulation: Intracranial internal carotid arteries are normal in size and appear patent bi laterally. There is atherosclerotic calcification along the cavernous segments of the internal carot id arteries with associated bilateral mild to moderate narrowing. The paired anterior cerebral arter ies appear patent bilaterally with short segment stenosis demonstrated in the A2 segment of the right anterior cerebral artery proximally. The anterior communicating artery appears patent. The middle c erebral arteries appear patent bilaterally. No occlusion. No cerebral aneurysms identified. Posterior circulation: Visualized portions of the vertebral arteries demonstrate normal caliber, and join to form a patent basilar artery. The posterior cerebral arteries appears patent bilaterally. No high-grade stenosis, occlusion, or filling defects. No cerebral aneurysms identified. IMPRESSION: 1. No definite acute intracranial abnormality. 2. Right frontal cortical and subcortical encephalomalacia consistent with sequelae of a prior infarc t redemonstrated. 3. Short segment stenosis within the A2 segment of the right anterior cerebral artery proximally. The finding appears similar to the prior study given differences in technique. Reviewed by: Darci Carson MD on 12/01/2022 9:20 PM PDT Approved by: Darci Carson MD on 12/01/2022 9:20 PM PDT Station ID: [id number]
--- NOTE | 2022-12-01 21:33 | CT Report ---
PROCEDURE: ANGIO NECK W INDICATIONS: stroke sx CONTRAST: 80mL Omni 300 TECHNIQUE: After the administration of intravenous contrast, 1.5 mm axial sections acquired from the aortic arch to the [place]. Coronal 3-D maximum intensity projection (MIP) and/or volume rendering ref ormats were then performed. For radiation dose reduction, the following was used: automated exposur e control, adjustment of mA and/or kV according to patient size. COMPARISON: None. FINDINGS: Image quality: Excellent. NECK CT ANGIOGRAPHY: Carotid system: The great vessels demonstrate a conventional anatomy as they arise from the aortic a rch. The origins of the common carotid arteries appear patent. The common carotid arteries demonstr ate normal caliber and courses. There is mild calcified plaque in the carotid bulbs, left greater alexa n right, with narrowing of less than 50%. The internal carotid arteries demonstrate normal calibers a nd courses. Posterior circulation: The origins of the vertebral arteries both appear patent. The more superior extracranial portions of both vertebral arteries also demonstrate normal courses and calibers. They join to form a patent basilar artery. Soft tissues: Visualized neck soft tissues demonstrate no suspicious abnormalities. Bones: No suspicious bony lesions. Visualized cervical spine demonstrates straightening of the cerv ical lordosis. There is multilevel degenerative disc disease and facet joint arthropathy. IMPRESSION: 1. No high-grade stenosis or occlusion of the head and neck arteries. 2. Mild narrowing of less than 50% in the carotid bulbs. The estimate of stenosis included in the report of the imaging study was calculated using the NASCET method Reviewed by: Darci Carson MD on 12/01/2022 9:32 PM PDT Approved by: Darci Carson MD on 12/01/2022 9:32 PM PDT Station ID: [id number]
[2022-12-01 22:33] VITALS: BP 168/99
== END 2022-12-01 22:31 | disposition home or self-care (01) ==
LOC: ED 18:43
DX: G45.9 Transient cerebral ischemic attack, unspecified (principal); R29.705 NIHSS score 5; I48.91 Unspecified atrial fibrillation; Z79.01 Long term (current) use of anticoagulants; I10 Essential (primary) hypertension
CPT/HCPCS: 36415; 70496; 70498; 80048; 85025; 85610; 93005; 99283; 99284; G0480; Q9967; 80320

== ENCOUNTER 2022-12-08 12:50 | Outpatient (CLI) | payer MEDICARE, OTHER | END 2022-12-08 12:51 | disposition home or self-care (01) | LOC: LAB.N 12:50 | PROVIDERS: ATTEND Internal Medicine | DX: D64.9 Anemia, unspecified (principal); I48.91 Unspecified atrial fibrillation | CPT/HCPCS: 36416; 85610 ==

== ENCOUNTER 2022-12-29 11:51 | Outpatient (CLI) | payer MEDICARE, OTHER | END 2022-12-29 11:52 | disposition home or self-care (01) | LOC: LAB.N 11:51 | PROVIDERS: ATTEND Internal Medicine | DX: D64.9 Anemia, unspecified (principal); I48.91 Unspecified atrial fibrillation | CPT/HCPCS: 36416; 85610 ==

== ENCOUNTER 2023-01-26 13:18 | Outpatient (CLI) | payer MEDICARE, OTHER | END 2023-01-26 13:19 | disposition home or self-care (01) | LOC: LAB.N 13:18 | PROVIDERS: ATTEND Internal Medicine | DX: D64.9 Anemia, unspecified (principal); I48.91 Unspecified atrial fibrillation | CPT/HCPCS: 36416; 85610 ==

== ENCOUNTER 2023-02-23 11:14 | Outpatient (CLI) | payer MEDICARE, OTHER | END 2023-02-23 11:15 | disposition home or self-care (01) | LOC: LAB.N 11:14 | PROVIDERS: ATTEND Internal Medicine | DX: D64.9 Anemia, unspecified (principal); I48.91 Unspecified atrial fibrillation | CPT/HCPCS: 36416; 85610 ==

== ENCOUNTER 2023-03-02 10:46 | Outpatient (CLI) | payer MEDICARE, OTHER | END 2023-03-02 10:47 | disposition home or self-care (01) | LOC: LAB.N 10:46 | PROVIDERS: ATTEND Internal Medicine | DX: D64.9 Anemia, unspecified (principal); I48.91 Unspecified atrial fibrillation | CPT/HCPCS: 36416; 85610 ==

== ENCOUNTER 2023-03-16 10:50 | Outpatient (CLI) | payer MEDICARE, OTHER | END 2023-03-16 10:51 | disposition home or self-care (01) | LOC: LAB.N 10:50 | PROVIDERS: ATTEND Internal Medicine | DX: D64.9 Anemia, unspecified (principal); I48.91 Unspecified atrial fibrillation | CPT/HCPCS: 36416; 85610 ==

== ENCOUNTER 2023-06-15 16:44 | Emergency (ER) | payer MEDICARE, OTHER ==
[2023-06-15 17:26] LABS: BASOPHILS % (AUTO) 0.4 %; EOSINOPHILS # (AUTO) 0.2 10^3/uL (0.0-0.7); EOSINOPHILS % (AUTO) 2.2 %; HGB - HEMOGLOBIN 8.9 g/dL (12.0-16.0); LYMPHOCYTES # (AUTO) 1.6 10^3/uL (1.5-3.5); LYMPHOCYTES % (AUTO) 20.8 %; MEAN CORPUSCULAR HEMOGLOBIN 22.2 pg (27.0-31.0); MEAN CORPUSCULAR HGB CONC 31.8 g/dL (32.0-36.0); MEAN CORPUSCULAR VOLUME 69.8 fL (81.0-99.0); MEAN PLATELET VOLUME 10.5 fL (7.9-10.8); MONOCYTES # (AUTO) 0.6 10^3/uL (0.0-1.0); MONOCYTES % (AUTO) 7.2 %; NEUTROPHILS # (AUTO) 5.4 10^3/uL (1.5-6.6); NEUTROPHILS % (AUTO) 68.9 %; PLT - PLATELET COUNT 204 10^3/uL (130-450); RED BLOOD COUNT 4.01 10^6/uL (4.20-5.40); RED CELL DISTRIBUTION WIDTH 18.2 % (12.0-15.0); WHITE BLOOD COUNT 7.9 x10^3/uL (4.8-10.8)
[2023-06-15 17:32] LABS: SLIDE REVIEW? Indicated
[2023-06-15 17:37] LABS: INR 1.6 (0.8-1.2)
[2023-06-15 17:42] LABS: ALBUMIN 3.4 g/dL (3.2-5.5); ALBUMIN/GLOBULIN RATIO 0.9 (1.0-2.2); BILIRUBIN,TOTAL 0.5 mg/dL (0.2-1.0); CALCIUM 8.9 mg/dL (8.5-10.3); CREATININE 2.2 mg/dL (0.6-1.3); POTASSIUM 4.2 mmol/L (3.5-4.5)
[2023-06-15 17:47] LABS: PLATELET ESTIMATE, MANUAL NORMAL (130-450,000) (NORMAL); PLATELET MORPHOLOGY NORMAL APPEARANCE (NORMAL)
[2023-06-15 17:48] LABS: WBC MORPHOLOGY (MULTIPLE) A (NORMAL)
[2023-06-15 18:12] LABS: BILIRUBIN,URINE NEGATIVE (NEGATIVE); GLUCOSE, URINE (UA) NEGATIVE (NEGATIVE); KETONES,URINE (UA) NEGATIVE (NEGATIVE); LEUKOCYTE ESTERASE, URINE SMALL (NEGATIVE); NITRITE,URINE NEGATIVE (NEGATIVE); OCCULT BLOOD,URINE NEGATIVE (NEGATIVE); PH,URINE 5.5 PH (5.0-7.5); PROTEIN,URINE NEGATIVE (NEGATIVE); UROBILINOGEN,URINE 0.2 (NORMAL) E.U./dL (NORMAL)
[2023-06-15 18:16] LABS: CLARITY,URINE CLEAR (CLEAR)
[2023-06-15 18:29] LABS: RBC,URINE None Seen /HPF (0-5); SQUAMOUS EPITHELIAL CELL,UR NONE SEEN (<= Few); WBC CLUMPS,URINE PRESENT
[2023-06-15 18:30] LABS: BACTERIA,URINE Few /HPF (None Seen); CASTS, URINE 0-2 Hyaline Casts /LPF
[2023-06-15] MEDS ORDERED: cefTRIAXone 1 GM VIAL IVP STA (20:00)
[2023-06-15] MEDS ORDERED: SODIUM CHLORIDE 0.9% 1,000 ML IV STA ×2 (20:00→22:58)
--- NOTE | 2023-06-15 21:18 | CT Report ---
PROCEDURE: HEAD WO INDICATIONS: altered mental status TECHNIQUE: Noncontrast 4.5 mm thick angled axial sections acquired from the foramen magnum to the vertex. For r adiation dose reduction, the following was used: automated exposure control, adjustment of mA and/or kV according to patient size. COMPARISON: CTA head and neck 12/01/2022, CT head, MR brain 11/30/2022 FINDINGS: Image quality: Excellent. The ventricular system and cortical sulci demonstrate atrophy, consistent for patient's stated age. There are areas of hypodensity in the periventricular and subcortical white matter. There is no acut e intra or extra-axial fluid collection. Encephalomalacia within the right frontal lobe is present co nsistent with prior infarction. There is ill-defined appearance of vasogenic edema within the superio r and midportion of the left frontal lobe measuring approximately 3.7 x 4.9 cm. It is producing left to right midline shift of approximately 7 mm. There is effacement of the anterior frontal horn of the left ventricle. No visualized hemorrhage. Brainstem is unremarkable. Globes are symmetrical. Sinuses are aerated. Osseous structures are intact. IMPRESSION: Interval appearance of vasogenic masslike edema within the left frontal lobe causing left to right mi dline shift as well as effacement of the left lateral frontal horn. This could represent underlying m ass such as malignancy. Other etiologies can include focus of infection or inflammation. It has devel oped since prior exam of November 2022. Further characterization with MRI with and without contrast is re commended as well as neurosurgical consult. Reviewed by: Anastasiia Clarke MD on 06/15/2023 9:17 PM PST Approved by: Anastasiia Clarke MD on 06/15/2023 9:17 PM PST Station ID: [id number]
--- NOTE | 2023-06-15 21:21 | CT Report ---
PROCEDURE: ABDOMEN/PELVIS WO INDICATIONS: altered mental status TECHNIQUE: A CT scan of the abdomen and pelvis was performed without the use of intravenous contrast. Images we re recorded and evaluated at appropriate window settings. Reformats: coronal and sagittal. For radiat ion dose reduction, the following was used: automated exposure control, adjustment of mA and/or kV ac cording to patient size. COMPARISON: None. FINDINGS: Image quality: Excellent. Lung bases and heart: Unremarkable. Liver: No solid mass. Liver measures 20.2 cm with steatosis. Gallbladder and biliary tree: Luminal stones without wall thickening. Spleen: No splenomegaly. Pancreas: No pancreatic ductal dilation. Adrenals: No adrenal nodule. Kidneys and ureters: No hydronephrosis. No renal cystic lesion which requires follow up. No solid mas s. Bilateral renal atrophy. Bowel and peritoneum: No bowel distension. No pathologic free fluid. Colonic diverticula are present without inflammatory change. Lymph nodes: No central or retroperitoneal adenopathy. Vessels: No infrarenal aortic aneurysm. PELVIS Reproductive organs: Unremarkable. Bladder: No wall thickness, accounting for underdistention. Pelvic lymph nodes: No pelvic adenopathy by size criteria. Bones: No aggressive osseous abnormality. Other: No significant ventral or inguinal hernia. IMPRESSION: Cholelithiasis without imaging evidence of cholecystitis. Diverticulosis. Hepatomegaly with steatosis. Reviewed by: Anastasiia Clarke MD on 06/15/2023 9:20 PM PST Approved by: Anastasiia Clarke MD on 06/15/2023 9:20 PM PST Station ID: [id number]
[2023-06-15] MEDS ORDERED: DEXAMETHASONE 10 MG/ML VIAL IVP STA (22:58)
--- NOTE | 2023-06-15 23:36 | ED Physician Documentation ---
History of Present Illness - Stated complaint Stated Complaint: /AMS/SENT BY PCP - Chief complaint Chief Complaint: General - History obtained from History obtained from: Patient - History of Present Illness Timing: How many weeks ago (1) Pain level max: 0 Pain level now: 0 - Additonal information Additional information: Patient is a 77-year-old female with a history of hypertension, hyperlipidemia, atrial fibrillation, urinary incontinence, gout. She was seen by her primary care provider today and found to have decreased responsiveness and altered mental status. Family states that she has been like this for the past 1 week. No fevers. No vomiting. She did recently stop her overactive bladder medic ation. She was recently changed from warfarin to Eliquis. No trauma that the family is aware of. Did have a slight stumble yesterday but caught her and helped her to the ground. No head strike reported. Family states she is normally very verbal and ambulatory, does have some residual right-sided weakness from a prior stroke. She has had episodes of staring as well as decreased responsiveness and decreased talking over the past 1 week. Review of Systems Unable to obtain: AMS Constitutional: denies: Fever, Chills GI: denies: Vomiting, Diarrhea Skin: denies: Rash Musculoskeletal: denies: Neck pain, Back pain PD PAST MEDICAL HISTORY - Past Medical History Past Medical History: Yes Cardiovascular: Hypertension, High cholesterol, Arrhythmia Respiratory: None, Sleep apnea, CPAP use Neuro: Other Endocrine/Autoimmune: None GI: Colon polyps : Incontinence HEENT: None Musculoskeletal: Osteoarthritis, Gout - Past Surgical History Past Surgical History: Yes General: Colonoscopy Ortho: Other /TAX ADJUSTER: section HEENT: Cataracts, Other - Present Medications Home Medications: Ambulatory Orders Medication Instructions Recorded Confirmed Warfarin Sodium [Coumadin] 2 mg PO DAILY 05/26/16 06/11/19 allopurinoL [Zyloprim] 100 mg PO DAILY 05/26/16 06/11/19 Doxazosin Mesylate 1 tab ORAL DAILY PM 12/19/18 06/12/19 Losartan Potassium 1 tab ORAL DAILY 12/19/18 06/12/19 Metoprolol Tartrate 25 tab ORAL BID 12/19/18 06/12/19 Simvastatin 1 tab ORAL DAILY PM 12/19/18 06/11/19 Furosemide 20 mg PO DAILY 06/11/19 06/11/19 Enoxaparin [Lovenox] 1 BID 06/12/19 - Allergies Allergies/Adverse Reactions: Allergies Allergy/AdvReac Type Severity Reaction Status Date / Time Penicillins Allergy Rash Verified 06/15/23 16:52 amlodipine AdvReac Unknown Unknown Verified 06/15/23 16:52 - Social History Does the pt smoke?: No Smoking Status: Never smoker Does the pt drink ETOH?: No Does the pt have substance abuse?: No - Immunizations Immunizations are current?: Yes - POLST Patient has POLST: No PD ED PE NORMAL - Vitals Vital signs reviewed: Yes - General General: No acute distress, Well developed/nourished, Other (Alert, mildly slow to respond. Oriented to person and place) - HEENT HEENT: Atraumatic, PERRL, Moist mucous membranes, Pharynx benign - Neck Neck: Supple, no meningeal sign - Cardiac Cardiac: RRR, Strong equal pulses - Respiratory Respiratory: No respiratory distress, Clear bilaterally - Abdomen Abdomen: Soft, Non tender, Non distended - Back Back: No spinal TTP - Derm Derm: Warm and dry - Neuro Neuro: No sensory deficit, Other (Mild right leg weakness, chronic. Unchanged from prior.) Eye Opening: Spontaneous Motor: Obeys Commands Verbal: Confused GCS Score: 14 Results - Vitals Vitals: Vital Signs - 24 hr 06/15/23 06/15/23 06/15/23 16:52 17:10 21:24 Temperature 36.8 C 37.6 C Heart Rate 60 52 L 75 Respiratory 16 16 15 Rate Blood Pressure 127/68 138/66 H 146/88 H O2 Saturation 99 99 99 Oxygen O2 Source Room air - Labs Labs: Laboratory Tests 06/15/23 06/15/23 06/15/23 17:20 17:20 17:20 WBC 7.9 RBC 4.01 L Hgb 8.9 L Hct 28.0 L MCV 69.8 L MCH 22.2 L MCHC 31.8 L RDW 18.2 H Plt Count 204 MPV 10.5 Neut # (Auto) 5.4 Lymph # (Auto) 1.6 Mitchell # (Auto) 0.6 Eos # (Auto) 0.2 Baso # (Auto) 0.0 Absolute Nucleated RBC 0.00 Nucleated RBC % 0.0 Manual Slide Review Indicated WBC Morphology A Platelet Estimate NORMAL (130-450,000) Platelet Morphology NORMAL APPEARANCE RBC Morph Micro Appear 1+ TARGET CELLS PT 17.0 H INR 1.6 H Sodium 133 L Potassium 4.2 Chloride 100 L Carbon Dioxide 25 Anion Gap 8.0 BUN 47 H Creatinine 2.2 H Estimated GFR (MDRD) 22 L Glucose 170 H Calcium 8.9 Total Bilirubin 0.5 AST 14 ALT 9 L Alkaline Phosphatase 84 Total Protein 7.0 Albumin 3.4 Globulin 3.6 Albumin/Globulin Ratio 0.9 L Lipase 44 Urine Color Urine Clarity Urine pH Ur Specific [place] Urine Protein Urine Glucose (UA) Urine Ketones Urine Occult Blood Urine Nitrite Urine Bilirubin Urine Urobilinogen Ur Leukocyte Esterase Urine RBC Urine WBC Urine WBC Clumps Ur Squamous Epith Cells Urine Bacteria Urine Casts Ur Microscopic Review Urine Culture Comments 06/15/23 17:50 WBC RBC Hgb Hct MCV MCH MCHC RDW Plt Count MPV Neut # (Auto) Lymph # (Auto) Mitchell # (Auto) Eos # (Auto) Baso # (Auto) Absolute Nucleated RBC Nucleated RBC % Manual Slide Review WBC Morphology Platelet Estimate Platelet Morphology RBC Morph Micro Appear PT INR Sodium Potassium Chloride Carbon Dioxide Anion Gap BUN Creatinine Estimated GFR (MDRD) Glucose Calcium Total Bilirubin AST ALT Alkaline Phosphatase Total Protein Albumin Globulin Albumin/Globulin Ratio Lipase Urine Color YELLOW Urine Clarity CLEAR Urine pH 5.5 Ur Specific [place] <=1.005 Urine Protein NEGATIVE Urine Glucose (UA) NEGATIVE Urine Ketones NEGATIVE Urine Occult Blood NEGATIVE Urine Nitrite NEGATIVE Urine Bilirubin NEGATIVE Urine Urobilinogen 0.2 (NORMAL) Ur Leukocyte Esterase SMALL H Urine RBC None Seen Urine WBC 6-10 H Urine WBC Clumps PRESENT Ur Squamous Epith Cells NONE SEEN Urine Bacteria Few Urine Casts 0-2 Hyaline Casts Ur Microscopic Review INDICATED Urine Culture Comments INDICATED - Rads (name of study) Head CT Relevant Findings:: Final report received, See rad report CT abdomen pelvis Relevant Findings:: Final report received, See rad report PD Medical Decision Making - ED course Complexity details: reviewed results, re-evaluated patient, considered differential, d/w patient, d/w family ED course: 77-year-old female with altered mental status x [address] shows an interval appearance of a vasogenic masslike edema in the left frontal lobe causing left to right midline shift with effacement of the left lateral frontal horn. Likely represents an underlying mass. No fevers. No recent illnesses to suggest infection or inflammation. MRI not available here tonight. Discussed with the family. Her daughter is a nurse at [facility], works on the neurosurgical floor there. She request transfer to [facility] for further evaluation and care. A call was placed to the transfer center and we will attempt to transfer the patient to [facility] for further care. Patient was given dexamethasone IV. IV fluids given. Patient will be signed out to the oncoming emergency department physician, see their notes for further care and final disposition. This document was made in part using voice recognition software. While efforts are made to proofread this document, sound alike and grammatical errors may occur. PROCEDURE: HEAD WO INDICATIONS: altered mental status TECHNIQUE: Noncontrast 4.5 mm thick angled axial sections acquired from the foramen magnum to the vertex. For radiation dose reduction, the following was used: automated exposure control, adjustment of mA and/or kV according to patient size. COMPARISON: CTA head and neck 12/01/2022, CT head, MR brain 11/30/2022 FINDINGS: Image quality: Excellent. The ventricular system and cortical sulci demonstrate atrophy, consistent for patient's stated age. There are areas of hypodensity in the periventricular and subcortical white matter. There is no acute intra or extra-axial fluid collection. Encephalomalacia within the right frontal lobe is present consistent with prior infarction. There is ill-defined appearance of vasogenic edema within the superior and midportion of the left frontal lobe measuring approximately 3.7 x 4.9 cm. It is producing left to right midline shift of approximately 7 mm. There is effacement of the anterior frontal horn of the left ventricle. No visualized hemorrhage. Brainstem is unremarkable. Globes are symmetrical. Sinuses are aerated. Osseous structures are intact. IMPRESSION: Interval appearance of vasogenic masslike edema within the left frontal lobe causing left to right midline shift as well as effacement of the left lateral frontal horn. This could represent underl jayesh mass such as malignancy. Other etiologies can include focus of infection or inflammation. It has developed since prior exam of November 2022. Further characterization with MRI with and without contrast is recommended as well as neurosurgical consult. PROCEDURE: ABDOMEN/PELVIS WO INDICATIONS: altered mental status TECHNIQUE: A CT scan of the abdomen and pelvis was performed without the use of intravenous contrast. Images were recorded and evaluated at appropriate window settings. Reformats: coronal and sagittal. For radiation dose reduction, the following was used: automated exposure control, adjustment of mA and/or kV according to patient size. COMPARISON: None. FINDINGS: Image quality: Excellent. Lung bases and heart: Unremarkable. Liver: No solid mass. Liver measures 20.2 cm with steatosis. Gallbladder and biliary tree: Luminal stones without wall thickening. Spleen: No splenomegaly. Pancreas: No pancreatic ductal dilation. Adrenals: No adrenal nodule. Kidneys and ureters: No hydronephrosis. No renal cystic lesion which requires follow up. No solid mass. Bilateral renal atrophy. Bowel and peritoneum: No bowel distension. No pathologic free fluid. Colonic diverticula are present without inflammatory change. Lymph nodes: No central or retroperitoneal adenopathy. Vessels: No infrarenal aortic aneurysm. PELVIS Reproductive organs: Unremarkable. Bladder: No wall thickness, accounting for underdistention. Pelvic lymph nodes: No pelvic adenopathy by size criteria. Bones: No aggressive osseous abnormality. Other: No significant ventral or inguinal hernia. IMPRESSION: Cholelithiasis without imaging evidence of cholecystitis. Diverticulosis. Hepatomegaly with steatosis. Departure - Departure Disposition: 02 Transfer Acute Care Hosp Clinical Impression: Brain mass, Vasogenic brain edema Condition: Stable Forms: PCP List
--- NOTE | 2023-06-16 01:04 | ED Physician Documentation ---
ED Addendum - Addendum Addendum: I spoke to Dr. March from neurosurgery, he agrees with the need for transfer, recommends consulting the hospitalist service at [facility] to transfer the patient. I then spoke with Dr. Morales, from the hospitalist service. He graciously accepts in transfer. The patient will be boarded in our emergency department awaiting a bed availability at [facility]. Patient is signed out to the oncoming emergency department physician. This document was made in part using voice recognition software. While efforts are made to proofread this document, sound alike and grammatical errors may occur.
[2023-06-16 07:45] LABS: BASOPHILS % (AUTO) 0.2 %; HCT - HEMATOCRIT 28.1 % (37.0-47.0); HGB - HEMOGLOBIN 9.3 g/dL (12.0-16.0); LYMPHOCYTES # (AUTO) 0.7 10^3/uL (1.5-3.5); LYMPHOCYTES % (AUTO) 12.5 %; MEAN CORPUSCULAR HEMOGLOBIN 22.6 pg (27.0-31.0); MEAN CORPUSCULAR HGB CONC 33.1 g/dL (32.0-36.0); MEAN CORPUSCULAR VOLUME 68.2 fL (81.0-99.0); MEAN PLATELET VOLUME 10.9 fL (7.9-10.8); MONOCYTES # (AUTO) 0.1 10^3/uL (0.0-1.0); NEUTROPHILS # (AUTO) 4.5 10^3/uL (1.5-6.6); NEUTROPHILS % (AUTO) 85.7 %; PLT - PLATELET COUNT 191 10^3/uL (130-450); RED BLOOD COUNT 4.12 10^6/uL (4.20-5.40); RED CELL DISTRIBUTION WIDTH 18.3 % (12.0-15.0); WHITE BLOOD COUNT 5.3 x10^3/uL (4.8-10.8)
[2023-06-16 08:03] LABS: CALCIUM 8.7 mg/dL (8.5-10.3); CREATININE 1.7 mg/dL (0.6-1.3); POTASSIUM 4.2 mmol/L (3.5-4.5)
[2023-06-16] MEDS ORDERED: DEXAMETHASONE 4 MG/ML VIAL IVP ONE ×2 (10:06→11:30)
--- NOTE | 2023-06-16 10:21 | ED Physician Documentation ---
ED Addendum - Addendum Addendum: 06/16/23 Patient received in signout awaiting transfer to [facility] after a CT scan of the head demonstrated a vasogenic masslike edema within the left frontal lobe causing left to right midline shift. Mass is approximately 3.7 x 4.9 cm. I evaluated the patient this morning at the bedside. She is confused as to where she is and initially states she is at a department store but otherwise knows her name, month and year. She understands she is awaiting transfer and a family mem bers at the bedside. She did sleep well overnight. A.m. labs were reviewed and without any significant abnormalities. Will continue patient on dexamethasone today as well as Rocephin pending urine culture. 06/16/23 15:40 A bed has opened up at [facility]. Patient condition remains unchanged. Transportation is being set up. Departure - Departure Disposition: 02 Transfer Acute Care Hosp Clinical Impression: Brain mass, Vasogenic brain edema Condition: Stable Forms: PCP List Discharge Date/Time: 06/16/23 17:29
[2023-06-16] MEDS ORDERED: DEXAMETHASONE 10 MG/ML VIAL IVP ONE (12:00)
[2023-06-16 15:32] VITALS: BP 150/68; O2SAT 97
[2023-06-16] MEDS ORDERED: cefTRIAXone 1 GM in SODIUM CHLORIDE 0.9% MINIBAG 100 ML IV SCH (18:00)
== END 2023-06-16 17:29 | disposition short-term general hospital (02) ==
LOC: ED 16:44
DX: G93.6 Cerebral edema (principal); G93.89 Other specified disorders of brain; I10 Essential (primary) hypertension; Z79.01 Long term (current) use of anticoagulants
CPT/HCPCS: 36415; 80048; 80053; 81001; 81003; 83690; 85025; 85610; 87077; 87086; 87181; 96374; 96375; 99285

== ENCOUNTER 2023-06-16 17:09 | Outpatient (CLI) | payer MEDICARE, OTHER | END 2023-06-16 17:10 | disposition short-term general hospital (02) | LOC: EMS 17:09 | PROVIDERS: ATTEND Emergency Medicine | DX: G93.9 Disorder of brain, unspecified (principal); R41.82 Altered mental status, unspecified | CPT/HCPCS: A0425; A0428 ==

== ENCOUNTER 2024-03-07 15:18 | Outpatient (CLI) | payer MEDICARE, OTHER ==
--- NOTE | 2024-03-07 15:49 | Sleep Patient Instructions ---
Sleep Center Visit Summary - Patient Visit Information Reason for Visit: Annual follow-up - Patient Instructions Additional Instructions: You will continue with CPAP therapy with pressure set at 9-11 cmH2O. A supply prescription will be updated with your DME supplier. We encourage you to continue to try to lose weight. Please follow up with the sleep care office in 1 year. - Clinic Information Contact: [facility] [address] [place] [email or web address] T: [phone]
--- NOTE | 2024-03-07 15:59 | SLEEP CARE CONSULTATION ---
Information from patient questionnaire entered by Suzy Sarmiento. I have reviewed and concur with the information entered by Suzy Sarmiento. This document represents the service I personally performed and the decisions made by me, Romy Hammond ARNP. History of Present Illness Service Date and Time: 03/07/2024 1518 Previous diagnosis: Mild, Obstructive Sleep Apnea-Hypopnea Syndrome AHI: 10.2 (in 2015) Reason for follow up: annual (LAST SEEN 02/2022) Accompanied by: Spouse Equipment type: CPAP (JAYLEN II, s/u 12/09/2021) Equipment obtained from: Other ([facility]; getting supplies) Mask style: Nasal (over the nose ([place])) Backup mask available: Yes Prior sleep studies: Yes [facility] and [facility] HPI additional information: EUNICE ARIAS was diagnosed to have mild, AHI 10.2, obstructive sleep apnea- hypopnea syndrome and returned today for CPAP therapy annual follow-up. Sleep Study - Results [facility]: Yes [facility] Compliance Data - Data Reviewed with Patient Average duration of nightly device use: 8 HRS 23 MINS Compliance rate %: 93.3 (11/02/23-01/30/24; 89/90 days used) Current pressure setting (cmH2O): 9-11 Average residual AHI: 0.1 Central apnea: 0 Average large leak: 8.3 L/min Subjective Missed days of use due to: reports: travel Patient concerns: reports: mask discomfort. denies: aerophagia, air blowing in eyes, mask leak noise, condensation in mask/hose, nasal congestion, dry mouth, nose, throat, epistaxis Observed to snore while using device: No Current pressure setting perceived as: comfortable On therapy, patient: reports: sleeping better, awakening more refreshed, being more awake and alert during the day, more rested overall. denies: drowsiness while driving (she is not driving) Initial [place] Sleepiness Scale score: 10 (in 2015) Current [place] Sleepiness Scale score: 6 (03/07/24) Allergies and Home Medications Known drug allergies: Yes (as listed) Drug allergies reviewed: Yes Home medication list reviewed: Yes (Gabapentin) Allergy and home medication list: Allergies Penicillins Allergy (Verified 03/07/24 15:26) Rash amlodipine Adverse Reaction (Unknown, Verified 03/07/24 15:26) Unknown Review of Systems Review of systems same as previous: No (benign abscess drained, hospitalized on/off; last release 10/17) Physical Exam Vital signs obtained and entered by: SUZY Yarbrough MA Blood Pressure: 113/61 (LEFT ARM) Cuff size: long Heart Rate: 69 O2 Saturation: 99 Height: 5 ft Weight: 193 lb Body Mass Index: 37.7 BMI Classification: Obese Impression and Plan 1. Obstructive Sleep Apnea-Hypopnea Syndrome, mild, with good treatment compliance and good apnea control. On CPAP therapy, the patient has better sleep quality and is more rested overall. Patient has significant improvement of their sleep apnea and is satisfied with current CPAP therapy. She still gets lines on her face from her mask. I put soft barrier on the cheek straps to try to help reduce lines on her face. She says she cannot get into the application on her phone to upload her data. She was advised to call her DME for help in getting this set back up. She voiced understanding. Patient's apnea severity and rationale for treatment to reduce apnea, improve sleep quality and reduce cardiovascular and cerebrovascular events was reviewed. I also reviewed the benefit of consistent device use of CPAP for hypertension, arrhythmia. 2. Obesity, unspecified. Currently patients BMI is 37.7. Obesity increases the risk of apnea, CPAP pressure requirements and overall health risks especially cardiovascular and diabetes. Thus patient is advised to lose weight. * Continue auto CPAP pressure at 9-11 cmH2O * Update supply prescription. * Notify me if snoring with mask or feeling that the pressure is too much or too little * Attempt to lose weight * Call this office if any problems using CPAP * Return for follow up in 12 months, or sooner if concerns arise Counseling Topics: Spare mask, Weight loss health impact Prescriptions: Device supplies Follow up with Sleep Care in: 1 year Visit Type: In Office Time Spent with Patient (minutes): 24 Provider Statement: I spent 100% of the Face to Face Visit with the patient with greater than 50% spent counseling the patient and coordination of care.
[2024-03-07 16:08] VITALS: BP 113/61; O2SAT 99
== END 2024-03-07 15:19 | disposition home or self-care (01) ==
LOC: SC 15:18
PROVIDERS: ATTEND Nurse Practitioner Family
DX: G47.33 Obstructive sleep apnea (adult) (pediatric) (principal); E66.9 Obesity, unspecified; Z68.37 Body mass index [BMI] 37.0-37.9, adult
CPT/HCPCS: 99213; G0463; 99212